=== PATIENT | female | born 1965 | race Caucasian/White ===

== ENCOUNTER 2018-06-14 07:10 | Emergency (ER) ==
[2018-06-14 07:22] VITALS: BP 184/126; TEMP 98; BMI 51.7
[2018-06-14] MEDS ORDERED: ZOFRAN 4 MG/2 ML IVP STA ×2 (07:43→10:28)
[2018-06-14] MEDS ORDERED: TORADOL IVP STA (07:43)
--- NOTE | 2018-06-14 07:51 | ED.PDOC ---
General ED Provider: Dr. ASUNCION CASAS Chief Complaint: Headache Stated Complaint: Severe Headache with nausea and vomiting. Onset yesterday while working. Has been some time since expericencing this type of headache. Has been experiencing multipe episodes of emesis. Time Seen by Physician: 07:15 Mode of Arrival: Walk-In Information Source: Patient Exam Limitations: No limitations Primary Care Provider: ASUNCION HERRERA Nursing and Triage Documentation Reviewed and Agree: Yes Does patient meet sepsis criteria?: No System Inflammatory Response Syndrome: Not Applicable Sepsis Protocol: For patient's 13 years and over: Temp is 96.8 and below OR 101 and greater Pulse >90 BPM Resp >20/minute Acutely Altered Mental Status Are patient's symptoms suggestive of a new infection, such as: -Pneumonia -Skin, Soft Tissue -Endocarditis -UTI -Bone, Joint Infection -Implantable Device -Acute Abdominal Infection -Wound Infection -Meningitis -Blood Stream Catheter Infection -Unknown Neurological Complaint Exam - Headache Complaint/Exam Onset: Sudden Duration: 20 HR Symptoms Are: Still present Timing: Constant Episodes Lasting: Hours Worst Headache Ever: No Initial Severity: Moderate Current Severity: Severe Location: Diffuse, Occipital Character: Reports: Dull, Throbbing, Pressure Alleviating: Reports: None Associated Signs and Symptoms: Reports: Dizziness, Nausea, Vomiting, Neck stiffness Related History: Reports: Similar episode Related Surgical History: Reports: None SAH Risk Factors: Reports: None Meningitis Risk Factors: Reports: None SDH Risk Factors: Reports: None Temporal Arteritis Risk Factors: Reports: Female, Normal Head CT Within Last 12 Months: No Temporal Artery Tenderness: Present: None Sinus Tenderness: Present: None TMJ Tenderness: Present: None Meningeal Signs Positive: No Pain on Passive Flexion-Positive Kernig's: No ROM Limited In: No Limitiations Focal Weakness: Present: None Focal Sensory Loss: Present: None Gait: Normal Nystagmus Present: No Gag Reflex Present: Yes [id number]: Normal Findings Differential Diagnoses: Migraine, Tension Headache, Other Review of Systems - Review Of Systems Constitutional: Reports: No symptoms Eyes: Reports: No symptoms Ears, Nose, Mouth, Throat: Reports: No symptoms Respiratory: Reports: No symptoms Cardiac: Reports: No symptoms GI: Reports: No symptoms : Reports: No symptoms Musculoskeletal: Reports: No symptoms Skin: Reports: No symptoms Neurological: Reports: No symptoms, Headache Endocrine: Reports: No symptoms Hematologic/Lymphatic: Reports: No symptoms All Other Systems: Reviewed and Negative Past Medical History - Past Medical History Previously Healthy: Yes Endocrine: Reports: DM 2 Cardiovascular: Reports: CAD, SD (2015), Hypertension Respiratory: Reports: None Hematological: Reports: Anemia Gastrointestinal: Reports: None Genitourinary: Reports: None Neuro/Psych: Reports: Migraine Musculoskeletal: Reports: None Cancer: Reports: Breast Last Menstrual Period: unknown - Surgical History General Surgical History: Reports: Other (Bilateral Mastectomies) - Family History Family History: Reports: Heart, Hypertension, Diabetes - Social History Smoking Status: Current every day smoker, Light tobacco smoker Hx Substance Use: No Alcohol Screening: None Physical Exam - Physical Exam Appearance: Ill-appearing, Obese Ill-appearing: Moderate Pain Distress: Moderate Eyes: YUL[place], EOMI, Conjunctiva clear ENT: Ears normal, Nose normal, Oropharynx normal Neck: Supple Respiratory: Airway patent, Breath sounds clear, Breath sounds equal, Respirations nonlabored Cardiovascular: RRR, Pulses normal, No rub, No murmur GI/: Soft, Nontender, No masses, Bowel sounds normal, No Organomegaly Musculoskeletal: Normal strength, ROM intact, No edema, No calf tenderness Skin: Warm, Dry, Normal color Neurological: Sensation intact, Motor intact, Reflexes intact, Cranial nerves intact, Alert, Oriented Psychiatric: Affect appropriate, Mood appropriate Critical Care Note - Critical Care Note Total Time (mins): 120 Course - Course Hematology/Chemistry: 06/14/18 07:55 06/14/18 07:55 Orders, Labs, Meds: Lab Review 06/14/18 06/14/18 06/14/18 07:55 07:55 08:20 WBC 8.70 RBC 5.67 H Hgb 17.4 H Hct 54.0 H MCV 95.2 MCH 30.7 MCHC 32.2 RDW Coeff of Connie 14.8 Plt Count 199 Neutrophils % (Manual) 92.0 H Lymphocytes % (Manual) 4.0 L Monocytes % (Manual) 3.0 Eosinophils % (Manual) 1.0 Anisocytosis Not present Sodium 138.6 Potassium 4.58 Chloride 97.8 L Carbon Dioxide 27.8 Anion Gap 17.58 BUN 17.8 H Creatinine 0.89 Estimated GFR (MDRD) 66.00 BUN/Creatinine Ratio 20.00 Glucose 389.5 H Calcium 9.77 Total Bilirubin 0.71 AST 24.1 ALT 29.1 Alkaline Phosphatase 123.8 Total Creatine Kinase 61.2 Troponin I < 0.012 Total Protein 7.45 Albumin 4.24 Globulin 3.21 Albumin/Globulin Ratio 1.32 Amylase Lipase Urine Color Urine Clarity Urine pH Ur Specific [place] Urine Protein Urine Glucose (UA) Urine Ketones Urine Blood Urine Nitrite Urine Bilirubin Urine Urobilinogen Ur Leukocyte Esterase Urine Microscopic RBC Ur Squamous Epith Cells Influ A Molecular Assay Influ B Molecular Assay 06/14/18 06/14/18 06/14/18 08:30 09:27 13:12 WBC RBC Hgb Hct MCV MCH MCHC RDW Coeff of Connie Plt Count Neutrophils % (Manual) Lymphocytes % (Manual) Monocytes % (Manual) Eosinophils % (Manual) Anisocytosis Sodium Potassium Chloride Carbon Dioxide Anion Gap BUN Creatinine Estimated GFR (MDRD) BUN/Creatinine Ratio Glucose Calcium Total Bilirubin AST ALT Alkaline Phosphatase Total Creatine Kinase Troponin I Total Protein Albumin Globulin Albumin/Globulin Ratio Amylase 53.4 Lipase 90.9 Urine Color Yellow Urine Clarity Clear Urine pH 5.5 Ur Specific [place] 1.020 Urine Protein Negative Urine Glucose (UA) Negative Urine Ketones Negative Urine Blood Trace-intact Urine Nitrite Negative Urine Bilirubin Negative Urine Urobilinogen 0.2 Ur Leukocyte Esterase Negative Urine Microscopic RBC 0-2 Ur Squamous Epith Cells Not present Influ A Molecular Assay Negative by naat Influ B Molecular Assay Negative by naat Orders Category Date Time Status EKG-(ED ONLY) Stat CARDIO 06/14/18 08:57 Completed VITAL SIGNS Q30MIN CARE 06/14/18 08:05 Active ACCUCHECK (ED) [ED ACCUCHECK ASSESSMENT] .ONCE EMERGENCY 06/14/18 09:50 Active ACCUCHECK (ED) [ED ACCUCHECK ASSESSMENT] .ONCE EMERGENCY 06/14/18 12:49 Active ED IV/MEDIPORT/POWERPORT .ONCE EMERGENCY 06/14/18 07:43 Active AMYLASE Stat LAB 06/14/18 08:30 Completed CBC W/ AUTO DIFF Stat LAB 06/14/18 07:55 Completed COMPREHENSIVE METABOLIC PANEL Stat LAB 06/14/18 07:55 Completed CPK [CREATINE KINASE] Stat LAB 06/14/18 08:20 Completed FLU A & B MOLECULAR [FLU A/B MOLECULAR] Stat LAB 06/14/18 09:27 Completed LIPASE Stat LAB 06/14/18 08:30 Completed MANUAL DIFFERENTIAL Stat LAB 06/14/18 07:55 Completed TROPONIN I Stat LAB 06/14/18 08:20 Completed UA [URINALYSIS C & S IF INDICATED] Stat LAB 06/14/18 13:12 Completed 0.9 % Sodium Chloride [Saline Flush] MEDS 06/14/18 07:43 Active 1 syr IVF PRN PRN Famotidine Inj [Pepcid] MEDS 06/14/18 08:56 Discontinued 20 mg IVP ONCE STA Insulin Regular, Human [Humulin R] MEDS 06/14/18 10:30 Discontinued 10 unit SUBCUT ONCE STA Ketorolac Tromethamine [Toradol] MEDS 06/14/18 07:43 Discontinued 30 mg IVP ONCE STA Losartan Potassium [Cozaar] MEDS 06/14/18 09:08 Discontinued 100 mg PO ONCE STA Metoprolol Tartrate [Lopressor] MEDS 06/14/18 09:09 Discontinued 50 mg PO ONCE STA Nalbuphine HCl [Nubain] MEDS 06/14/18 07:59 Discontinued 10 mg IVP ONCE STA Nalbuphine HCl [Nubain] MEDS 06/14/18 10:32 Discontinued 10 mg IVP ONCE STA Ondansetron HCl/Pf [Zofran 4 mg/2 ml] MEDS 06/14/18 07:43 Discontinued 4 mg IVP ONCE STA Ondansetron HCl/Pf [Zofran 4 mg/2 ml] MEDS 06/14/18 10:28 Discontinued 4 mg IVP ONCE STA Sodium Chloride 0.9% [Sodium Chloride] 1,000 ml MEDS 06/14/18 07:43 Discontinued IV BOLUS Sodium Chloride 0.9% [Sodium Chloride] 1,000 ml MEDS 06/14/18 10:[address] HEAD W/O CONTRAST Stat RADS 06/14/18 08:58 Completed Medications Generic Name Dose Route Start Last Admin Trade Name Freq PRN Reason Stop Dose Admin Sodium Chloride 1 syr 06/14/18 07:43 Saline Flush IVF PRN PRN To flush IV Discontinued Medications Generic Name Dose Route Start Last Admin Trade Name Freq PRN Reason Stop Dose Admin Famotidine 20 mg 06/14/18 08:56 06/14/18 09:30 Pepcid IVP 06/14/18 08:57 20 mg ONCE STA Administration Sodium Chloride 1,000 mls @ 500 mls/hr 06/14/18 07:43 06/14/18 10:48 Sodium Chloride IV 06/14/18 09:42 500 mls/hr BOLUS STA Administration Sodium Chloride 1,000 mls @ 1,000 mls/hr 06/14/18 10:40 06/14/18 13:31 Sodium Chloride IV 06/14/18 11:39 Not Given BOLUS STA Insulin Human Regular 10 unit 06/14/18 10:30 06/14/18 10:52 Humulin R SUBCUT 06/14/18 10:31 10 unit ONCE STA Administration Ketorolac Tromethamine 30 mg 06/14/18 07:43 06/14/18 08:36 Toradol IVP 06/14/18 07:44 Not Given ONCE STA Losartan Potassium 100 mg 06/14/18 09:08 06/14/18 11:16 Cozaar PO 06/14/18 09:09 100 mg ONCE STA Administration Metoprolol Tartrate 50 mg 06/14/18 09:09 06/14/18 11:17 Lopressor PO 06/14/18 09:10 50 mg ONCE STA Administration Nalbuphine HCl 10 mg 06/14/18 07:59 06/14/18 08:28 Nubain IVP 06/14/18 08:00 10 mg ONCE STA Administration Nalbuphine HCl 10 mg 06/14/18 10:32 06/14/18 10:56 Nubain IVP 06/14/18 10:33 10 mg ONCE STA Administration Ondansetron HCl 4 mg 06/14/18 07:43 06/14/18 08:26 Zofran 4 Mg/2 Ml IVP 06/14/18 07:44 4 mg ONCE STA Administration Ondansetron HCl 4 mg 06/14/18 10:28 06/14/18 10:48 Zofran 4 Mg/2 Ml IVP 06/14/18 10:29 4 mg ONCE STA Administration Vital Signs: Temp Pulse Resp BP Pulse Ox 06/14/18 07:10 98.0 F 104 H 20 184/126 H 93 L Departure - Departure Time of Disposition: 13:00 Disposition: HOME SELF-CARE Discharge Problem: Cephalgia, Gastritis, Vomiting, Hypertension, Insulin dependent diabetes mellitus Instructions: Acute Nausea and Vomiting (ED), Hypertension (ED), General Headache (ED), Diabetes and Exercise (ED) Condition: Fair Pt referred to PMD for follow-up: Yes (1 wk) IPMP verified?: No Additional Instructions: Monitor Blood glucose and use sliding scale Insulin Clear liquids and advance diet per tolerance May take home analgesics for pain and zofran for nausea -=vomiting Take meds for headache and nausea as needed Prescriptions: Ondansetron [Zofran Odt] 4 mg PO Q8H PRN #7 tab.rapdis PRN Reason: Nausea vomiting Ondansetron [Zofran Odt] 4 mg PO Q8H #7 tab.rapdis Allergies/Adverse Reactions: Allergies cefaclor [From Ceclor] Adverse Reaction (Verified 06/14/18 07:20) ibuprofen [From Motrin] Adverse Reaction (Verified 06/14/18 07:20) levofloxacin [From Levaquin] Adverse Reaction (Verified 06/14/18 07:20) Penicillins Adverse Reaction (Verified 06/14/18 07:20) steroid Adverse Reaction (Uncoded 10/05/14 13:31) Home Medications: Ambulatory Orders Levothyroxine Sodium [Synthroid] 100 mcg PO QDAC 06/28/15 Metformin HCl [Glucophage] 500 mg PO BIDWM 06/28/15 Metoprolol Succinate 50 mg PO BID 06/28/15 Hydrochlorothiazide 25 mg PO DAILY 06/14/18 Hydrocodone Bit/Acetaminophen [[place] 5-325] 1 each PO Q6HR PRN 06/14/18 Losartan Potassium [Cozaar] 100 mg PO DAILY 06/14/18 Nitroglycerin [Nitrostat] 0.4 mg SL Q5MIN X 3 DOSES PRN 06/14/18 Ondansetron [Zofran Odt] 4 mg PO Q8H #7 tab.rapdis 06/14/18 Ondansetron [Zofran Odt] 4 mg PO Q8H PRN #7 tab.rapdis 06/14/18 Pregabalin [Lyrica] 150 mg PO TID 06/14/18 Disposition Discussed With: Patient GI Complaint Exam - Vomiting/Diarrhea Complaint/Exam Onset/Duration: 20 hrs Symptoms Are: Still present (But improving with treatment.) Episodes of Vomiting over last 24 Hours: 8 Initial Severity: Moderate Current Severity: Moderate Character of Vomiting: Reports: Bilious, Retching Character of Diarrhea: Reports: Watery Aggravating: Reports: Liquids, Position Alleviating: Reports: None Associated Signs and Symptoms: Reports: Dizziness, Light-headedness, Cramping Last Oral Intake: Yesterday AM Surgical Obstruction Risk Factors: Reports: None Abdominal Findings: Present: None Kussmaul Respirations Present: No Differential Diagnoses: Dehydration, Gastritis, Viral Gastroenteritis, Pancreatitis
[2018-06-14] MEDS ORDERED: NUBAIN IVP STA ×2 (07:59→10:32)
[2018-06-14] MEDS: SODIUM CHLORIDE 1,000 ML IV STA ×2 (08:25→10:48)
[2018-06-14] MEDS ORDERED: PEPCID IVP STA (08:56)
[2018-06-14] MEDS ORDERED: COZAAR PO STA (09:08)
[2018-06-14] MEDS ORDERED: LOPRESSOR PO STA (09:09)
--- NOTE | 2018-06-14 10:04 | CT ---
EXAM: CT BRAIN HISTORY: Acute onset headache TECHNIQUE: CT brain without intravenous contrast. 5-mm axial sections with Reformations. COMPARISON: None FINDINGS: Brain is unremarkable without evidence of hemorrhage or large vessel distribution recent ischemic in farction. There is no suggestion of acute hydrocephalus or subdural fluid collection. No mass or ma ss effect. Cranium has no acute finding. Mastoid processes are aerated. The visualized paranasal sinuses are clear. IMPRESSION: No acute intracranial process.
[2018-06-14] MEDS ORDERED: HUMULIN R SUBCUT STA (10:30)
[2018-06-14] MEDS ORDERED: SODIUM CHLORIDE 1,000 ML IV STA (10:40)
== END 2018-06-14 14:08 | disposition home or self-care (01) ==
LOC: ED 07:10
DX: R11.2 Nausea with vomiting, unspecified (principal); R42 Dizziness and giddiness; M43.6 Torticollis; F17.210 Nicotine dependence, cigarettes, uncomplicated; E11.9 Type 2 diabetes mellitus without complications; R51 Headache; K29.70 Gastritis, unspecified, without bleeding; I10 Essential (primary) hypertension; Z79.4 Long term (current) use of insulin
CPT/HCPCS: 36415; 80053; 81001; 82150; 82550; 82962; 83690; 84484; 85007; 85025; 87502; 93005; 93010; 96360; 96361; 96372; 96375; 96376; 99284

== ENCOUNTER 2022-07-14 02:41 | Observation (INO) ==
[2022-07-14 02:53] VITALS: BMI 51.2
[2022-07-14] MEDS ORDERED: SODIUM CHLORIDE 1,000 ML IV STA (03:05)
[2022-07-14] MEDS ORDERED: ZOFRAN 4 MG/2 ML IVP STA (03:05)
[2022-07-14 03:22] LABS: BASOPHILS # (AUTO) 0.1 K/uL (0-0.2); BASOPHILS % (AUTO) 0.4 % (0.0-3.0); EOSINOPHILS % (AUTO) 0.4 % (0.0-7.0); HEMATOCRIT 49.1 % (37.0-47.0); HEMOGLOBIN 15.4 g/dl (12.0-16.0); IMMATURE GRANULOCYTE # (AUTO) 0.1 (0.0-1.0); IMMATURE GRANULOCYTE % (AUTO) 0.7 % (0.0-5.0); LYMPHOCYTES # (AUTO) 1.1 K/uL (0.60-3.4); MEAN CORPUSCULAR HEMOGLOBIN 29.2 pg (27.0-31.0); MEAN CORPUSCULAR HGB CONC 31.4 (31.8-35.4); MONOCYTES # (AUTO) 0.3 K/uL (0.4-2.0); MONOCYTES % (AUTO) 2.7 (0-10); NEUTROPHILS # (AUTO) 9.7 K/ul (2.0-6.9); NEUTROPHILS % (AUTO) 85.8 % (42.2-75.2); PLATELET COUNT 249 10^3/uL (140-440); RDW COEFFICIENT OF VARIATION 13.9 % (11.6-14.8); RED BLOOD COUNT 5.28 10^6/ul (4.20-5.40); WHITE BLOOD COUNT 11.28 K/ul (4.6-10.2)
[2022-07-14 03:34] LABS: ALANINE AMINOTRANSFERASE 20.8 U/L (0-35); ALBUMIN 4.98 g/dL (3.5-5.0); ALKALINE PHOSPHATASE 172.8 U/L (38-126); AMYLASE 61.7 U/L (30-110); ASPARTATE AMINO TRANSFERASE 27.3 U/L (14-36); BILIRUBIN,TOTAL 0.47 mg/dL (0.2-1.3); BLOOD UREA NITROGEN 24.5 mg/dL (7-17); CALCIUM 10.11 mg/dL (8.4-10.2); CARBON DIOXIDE 29.4 mmol/L (22-30.0); CHLORIDE 98.5 mmol/L (98-107); CREATININE 0.95 mg/dL (0.60-1.30); GLUCOSE 300.9 mg/dL (74-106); LIPASE 143.5 U/L (23-300); POTASSIUM 4.42 mmol/L (3.5-5.1); SODIUM 136.8 mmol/L (134.5-145); TOTAL PROTEIN 8.9 g/dL (6.3-8.2)
[2022-07-14] MEDS ORDERED: COMPAZINE IVP ONE (03:49)
[2022-07-14] MEDS ORDERED: VASOTEC IV IVP ONE (03:52)
--- NOTE | 2022-07-14 03:52 | ED.PDOC ---
General <CARLENE LADD MD - Last Filed: 07/14/22 19:04> ED Provider: Dr. CARLENE LADD Chief Complaint: Nausea/Vomiting Stated Complaint: Started having vomiting episodes tonight at 1030 pm. Has vomited twice. States she vomited her medicationss Time Seen by Provider: 07/14/22 03:05 Mode of Arrival: Walk-In Information Source: Patient and Family Primary Care Provider: ASUNCION HERRERA Nursing and Triage Documentation Reviewed and Agree: Yes Does patient meet sepsis criteria?: No System Inflammatory Response Syndrome: Not Applicable Sepsis Protocol: For patient's 13 years and over: Temp is 96.8 and below OR 101 and greater Pulse >90 BPM Resp >20/minute Acutely Altered Mental Status Are patient's symptoms suggestive of a new infection, such as: -Pneumonia -Skin, Soft Tissue -Endocarditis -UTI -Bone, Joint Infection -Implantable Device -Acute Abdominal Infection -Wound Infection -Meningitis -Blood Stream Catheter Infection -Unknown Review of Systems <CARLENE LADD MD - Last Filed: 07/14/22 19:04> Review Of Systems Constitutional: Reports Loss of appetite GI: Reports Nausea and Vomiting Neurological: Reports Headache All Other Systems: Reviewed and Negative PFSH <CARLENE LADD MD - Last Filed: 07/14/22 19:04> Medical History (Updated 07/14/22 @ 19:04 by CARLENE LADD MD) Cancer of breast Elevated lipids GERD (gastroesophageal reflux disease) Myocardial infarct Family History (Updated 07/14/22 @ 11:28 by MARIO GONSALEZ, TALYA) BROTHER Diabetes FATHER Diabetes Mother Hypertension Surgical History H/O bilateral mastectomy Hip joint replacement status History of heart artery stent Female Reproductive History Menstrual Hx Hysterectomy: No Hx Tubal Ligation: Yes Physical Exam <CARLENE LADD MD - Last Filed: 07/14/22 19:04> Physical Exam Appearance: Reports Obese Ill-appearing: Moderate Pain Distress: Mild Eyes: Reports YULIANA, EOMI and Conjunctiva clear ENT: Reports Nose normal and Oropharynx normal Neck: Not Examined Respiratory: Reports Airway patent and Breath sounds clear Cardiovascular: Reports RRR, Pulses normal, No rub and No murmur GI/: Reports Soft and Nontender Musculoskeletal: Reports Normal strength Skin: Reports Warm and Dry Neurological: Reports Motor intact, Alert and Oriented Psychiatric: Reports Anxious Interpretation <CARLENE LADD MD - Last Filed: 07/14/22 19:04> Radiology Interpretation Radiology Results: Negative Community Relations Representative Rate: Tachy Rhythm: Sinus Ectopy: None EKG Interpretation Time of EKG #1: 03:54 Rate: Tachy Rhythm: Sinus Ectopy: None [place]: NL ST Segment: Normal Interpretation: Sinus Tachycardia <ORIANA ROSS MD - Last Filed: 07/14/22 10:07> Radiology Interpretation Radiology Interpretation By: Radiologist Exam Interpreted: CT Scan Xray Comments: no brain bleed Physician Notification <CARLENE LADD MD - Last Filed: 07/14/22 19:04> Case Discussed Endorsed To/Discussed With: CODY Time of Discussion: 07:45 Critical Care Note <CARLENE LADD MD - Last Filed: 07/14/22 19:04> Critical Care Note Total Critical Care Time (mins): 45 Comments: Uncontrolled Blood pressure needed started on Nicardipine. intractable Nausea and vomiting needing IV fluids and Multiple IV pushes of antiemetics. Course <CARLENE LADD MD - Last Filed: 07/14/22 19:04> Course Hematology/Chemistry: 07/14/22 03:15 07/14/22 03:15 Orders, Labs, Meds: Lab Review 07/14/22 07/14/22 07/14/22 03:15 03:15 03:50 WBC 11.28 H RBC 5.28 Hgb 15.4 Hct 49.1 H MCV 93.0 MCH 29.2 MCHC 31.4 L RDW Coeff of Connie 13.9 Plt Count 249 Immature Gran % (Auto) 0.7 Neut % (Auto) 85.8 H Lymph % (Auto) 10.0 [place] % (Auto) 2.7 Eos % (Auto) 0.4 Baso % (Auto) 0.4 Neut # (Auto) 9.7 H Lymph # (Auto) 1.1 [place] # (Auto) 0.3 L Eos # (Auto) 0.0 Baso # (Auto) 0.1 Immature Gran # (Auto) 0.1 Sodium 136.8 Potassium 4.42 Chloride 98.5 Carbon Dioxide 29.4 Anion Gap 13.32 BUN 24.5 H Creatinine 0.95 Estimated GFR (MDRD) 60.00 BUN/Creatinine Ratio 25.78 Glucose 300.9 H Calcium 10.11 Total Bilirubin 0.47 AST 27.3 ALT 20.8 Alkaline Phosphatase 172.8 H Troponin I Total Protein 8.90 H Albumin 4.98 Globulin 3.92 Albumin/Globulin Ratio 1.27 Amylase 61.7 Lipase 143.5 Urine Color Yellow Urine Clarity Slightly Urine pH 7.0 Ur Specific [place] 1.020 Urine Protein 3+ H Urine Glucose (UA) 2+ H Urine Ketones 1+ H Urine Blood 1+ H Urine Nitrite Negative Urine Bilirubin Negative Urine Urobilinogen 0.2 Ur Leukocyte Esterase Negative Urine Microscopic RBC 2-5 Urine Microscopic WBC 0-2 Ur Squamous Epith Cells 0-2 Urine Bacteria 4+ SARS CoV-2 RNA Rapid VICKI 07/14/22 07/14/22 07:50 08:02 WBC RBC Hgb Hct MCV MCH MCHC RDW Coeff of Connie Plt Count Immature Gran % (Auto) Neut % (Auto) Lymph % (Auto) [place] % (Auto) Eos % (Auto) Baso % (Auto) Neut # (Auto) Lymph # (Auto) [place] # (Auto) Eos # (Auto) Baso # (Auto) Immature Gran # (Auto) Sodium Potassium Chloride Carbon Dioxide Anion Gap BUN Creatinine Estimated GFR (MDRD) BUN/Creatinine Ratio Glucose Calcium Total Bilirubin AST ALT Alkaline Phosphatase Troponin I 0.027 Total Protein Albumin Globulin Albumin/Globulin Ratio Amylase Lipase Urine Color Urine Clarity Urine pH Ur Specific [place] Urine Protein Urine Glucose (UA) Urine Ketones Urine Blood Urine Nitrite Urine Bilirubin Urine Urobilinogen Ur Leukocyte Esterase Urine Microscopic RBC Urine Microscopic WBC Ur Squamous Epith Cells Urine Bacteria SARS CoV-2 RNA Rapid VICKI Negative Orders Category Date Time Status EKG-(ED ONLY) Stat CARDIO 07/14/22 03:48 Completed EKG-(IP & OP ONLY) Routine CARDIO 07/15/22 06:00 Ordered ACTIVITY .Complete BR CARE 07/14/22 10:07 Active BLOOD GLUCOSE MONITORING (MED/SURG) ACCUCHECK Q6H CARE 07/14/22 10:07 Active GIVE HS SNACK 2100 CARE 07/14/22 10:08 Active INTAKE & OUTPUT Q8HR CARE 07/14/22 10:07 Active IP: INSERT SALINE LOCK ONCE CARE 07/14/22 10:07 Active TELEMETRY MONITORING TELE CARE 07/14/22 10:07 Active VITAL SIGNS Q4HR CARE 07/14/22 10:08 Active VTE PREVENTION .PAWEL On AM/Off PM CARE 07/14/22 10:07 Active ADA 1800 THERESA. DIET DIETARY 07/14/22 Lunch Ordered HS SNACK DIETARY 07/14/22 Dinner Ordered ED IV/MEDIPORT/POWERPORT .ONCE EMERGENCY 07/14/22 03:05 Active AMYLASE Stat LAB 07/14/22 03:15 Completed CBC W/ AUTO DIFF DAILY@0600 LAB 07/15/22 06:00 Ordered CBC W/ AUTO DIFF DAILY@0600 LAB 07/16/22 06:00 Ordered CBC W/ AUTO DIFF Stat LAB 07/14/22 03:15 Completed COMPREHENSIVE METABOLIC PANEL DAILY@0600 LAB 07/15/22 06:00 Ordered COMPREHENSIVE METABOLIC PANEL DAILY@0600 LAB 07/16/22 06:00 Ordered COMPREHENSIVE METABOLIC PANEL Stat LAB 07/14/22 03:15 Completed LIPASE Stat LAB 07/14/22 03:15 Completed SARS COV-2 RNA RAPID VICKI Stat LAB 07/14/22 07:50 Completed TROPONIN I Q8H LAB 07/14/22 16:25 Completed TROPONIN I Q8H LAB 07/15/22 00:15 Ordered TROPONIN I Stat LAB 07/14/22 08:02 Completed URINALYSIS C & S IF INDICATED Stat LAB 07/14/22 03:50 Completed URINE CULTURE Stat LAB 07/14/22 03:50 Received 0.9 % Sodium Chloride [Saline Flush] MEDS 07/14/22 03:05 Active 1 syr IVF PRN PRN Acetaminophen [Tylenol] MEDS 07/14/22 09:01 Discontinued 650 mg PO ONCE ONE Acetaminophen [Tylenol] MEDS 07/14/22 10:07 Active 650 mg PO Q4H PRN Amitriptyline HCl [Elavil] MEDS 07/14/22 21:00 Active 50 mg PO BEDTIME Diphenhydramine HCl [Benadryl] MEDS 07/14/22 15:00 Active 50 mg PO TID Enalaprilat Dihydrate [Vasotec IV] MEDS 07/14/22 03:52 Discontinued 1.25 mg IVP ONCE ONE Gabapentin [Neurontin] MEDS 07/14/22 15:00 Active 600 mg PO TID Haloperidol Lactate [Haldol] MEDS 07/14/22 05:10 Discontinued 1 mg IVP ONCE ONE Insulin Regular, Human [Humulin R] MEDS 07/14/22 10:14 Active See Protocol SUBCUT PRN PRN Labetalol HCl [Trandate] MEDS 07/14/22 04:10 Discontinued 20 mg IVP ONCE ONE Metoclopramide HCl [Reglan] MEDS 07/14/22 07:04 Discontinued 10 mg IVP ONCE STA Nalbuphine HCl [Nubain] MEDS 07/14/22 04:16 Discontinued 10 mg IVP ONCE ONE Nicardipine in NaCl, Iso-Osm [Cardene 20 mg/200 ml NaCl MEDS 07/14/22 06:39 Discontinued ] 20 mg in 200 ml IV TITRATION Nicardipine in NaCl, Iso-Osm [Cardene 20 mg/200 ml NaCl MEDS 07/14/22 10:00 Active ] 20 mg in 200 ml IV TITRATION Ondansetron HCl/Pf [Zofran 4 mg/2 ml] MEDS 07/14/22 03:05 Discontinued 4 mg IVP ONCE STA Ondansetron HCl/Pf [Zofran 4 mg/2 ml] MEDS 07/14/22 15:00 Active 4 mg IVP TID Pravastatin Sodium [Pravachol] MEDS 07/15/22 09:00 Active 40 mg PO DAILY Prochlorperazine Edisylate [Compazine] MEDS 07/14/22 03:49 Discontinued 10 mg IVP ONCE ONE Sodium Chloride 0.9% [Sodium Chloride] 1,000 ml MEDS 07/14/22 10:30 Active IV 75 mls/hr Sodium Chloride 0.9% [Sodium Chloride] 1,000 ml MEDS 07/14/22 03:05 Discontinued IV BOLUS Sodium Chloride 0.9% [Sodium Chloride] 500 ml MEDS 07/14/22 06:44 Active IV 30 mls/hr RESUSCITATION STATUS Routine OTHERS 07/14/22 10:[address] HEAD W/O CONTRAST Stat RADS 07/14/22 04:23 Completed Medications Generic Name Dose Route Start Last Admin Trade Name Freq PRN Reason Stop Dose Admin Acetaminophen 650 mg 07/14/22 10:07 07/14/22 11:59 Acetaminophen 325 Mg Tablet PO 650 mg Q4H PRN Administration Mild Pain Amitriptyline HCl 50 mg 07/14/22 21:00 Amitriptyline Hcl 25 Mg Tablet PO BEDTIME DREW Diphenhydramine HCl 50 mg 07/14/22 15:00 07/14/22 14:48 Diphenhydramine Hcl 25 Mg Capsule PO 50 mg TID DREW Administration Docusate Sodium 100 mg 07/14/22 21:00 Docusate Sodium 100 Mg Capsule PO BID DREW Gabapentin 600 mg 07/14/22 15:00 07/14/22 14:48 Gabapentin 300 Mg Capsule PO 600 mg TID DREW Administration Sodium Chloride 500 mls @ 30 mls/hr 07/14/22 06:44 07/14/22 06:47 Sodium Chloride IV 07/14/22 23:23 30 mls/hr .[id number] STA Administration Nicardipine/Sodium Chloride 20 mg in 200 mls @ 50 mls/hr 07/14/22 10:00 07/14/22 15:17 Cardene 20 Mg/200 Ml Nacl IV 0 mg/hr TITRATION DREW 0 mls/hr Titration Protocol 5 MG/HR Sodium Chloride 1,000 mls @ 75 mls/hr 07/14/22 10:30 07/14/22 16:23 Sodium Chloride IV Not Given .[id number] DREW Insulin Human Regular 0 unit 07/14/22 10:14 07/14/22 17:20 Insulin Regular, Human 100 Unit/Ml (3ml) Vial SUBCUT 4 unit PRN PRN Administration Hyperglycemia Protocol Morphine Sulfate 2 mg 07/14/22 15:23 07/14/22 15:28 Morphine Sulfate 2 Mg/Ml Syringe IVP 2 mg Q4H PRN Administration pain Ondansetron HCl 4 mg 07/14/22 15:00 07/14/22 14:48 Ondansetron Hcl/Pf 4 Mg/2 Ml Sdv IVP 4 mg TID DREW Administration Pravastatin Sodium 40 mg 07/15/22 09:00 Pravastatin Sodium 20 Mg Tablet PO DAILY DREW Sodium Chloride 1 syr 07/14/22 03:05 07/14/22 03:33 0.9% Sodium Chloride 10 Ml Disp.Syrin IVF 1 syr PRN PRN Administration To flush IV Tizanidine HCl 8 mg 07/14/22 21:00 Tizanidine Hcl 4 Mg Tablet PO BEDTIME DREW Discontinued Medications Generic Name Dose Route Start Last Admin Trade Name Freq PRN Reason Stop Dose Admin Acetaminophen 650 mg 07/14/22 09:01 07/14/22 09:16 Acetaminophen 325 Mg Tablet PO 07/14/22 09:02 650 mg ONCE ONE Administration Enalaprilat 1.25 mg 07/14/22 03:52 07/14/22 04:01 Enalaprilat Dihydrate 1.25 Mg/Ml Vial IVP 07/14/22 03:53 1.25 mg ONCE ONE Administration Haloperidol Lactate 1 mg 07/14/22 05:10 07/14/22 05:23 Haloperidol Lactate 5 Mg/Ml Vial IVP 07/14/22 05:11 1 mg ONCE ONE Administration Sodium Chloride 1,000 mls @ 1,000 mls/hr 07/14/22 03:05 07/14/22 03:32 Sodium Chloride IV 07/14/22 04:04 1,000 mls/hr BOLUS STA Administration Nicardipine/Sodium Chloride 20 mg in 200 mls @ 50 mls/hr 07/14/22 06:39 07/14/22 09:21 Cardene 20 Mg/200 Ml Nacl IV 07/14/22 10:38 0 mg/hr TITRATION STA 0 mls/hr Titration Protocol 5 MG/HR Labetalol HCl 20 mg 07/14/22 04:10 07/14/22 04:24 Labetalol Hcl 20 Mg/4 Ml Disp.Syrin IVP 07/14/22 04:11 20 mg ONCE ONE Administration Metoclopramide HCl 10 mg 07/14/22 07:04 07/14/22 07:11 Metoclopramide Hcl 10 Mg/2 Ml IVP 07/14/22 07:05 10 mg ONCE STA Administration Nalbuphine HCl 10 mg 07/14/22 04:16 07/14/22 04:27 Nalbuphine Hcl 10 Mg/Ml Ampul IVP 07/14/22 04:17 10 mg ONCE ONE Administration Ondansetron HCl 4 mg 07/14/22 03:05 07/14/22 03:27 Ondansetron Hcl/Pf 4 Mg/2 Ml Sdv IVP 07/14/22 03:06 4 mg ONCE STA Administration Prochlorperazine Edisylate 10 mg 07/14/22 03:49 07/14/22 03:57 Prochlorperazine Edisylate 10 Mg/2 Ml Sdv IVP 07/14/22 03:50 10 mg ONCE ONE Administration Vital Signs: Temp Pulse Resp BP Pulse Ox 07/14/22 05:49 101 H 22 H 172/98 H 95 07/14/22 02:42 97.8 F 102 H 20 223/125 H 99 <ORIANA ROSS MD - Last Filed: 07/14/22 10:07> Course Orders, Labs, Meds: Lab Review 07/14/22 07/14/22 07/14/22 03:15 03:15 03:50 WBC 11.28 H RBC 5.28 Hgb 15.4 Hct 49.1 H MCV 93.0 MCH 29.2 MCHC 31.4 L RDW Coeff of Connie 13.9 Plt Count 249 Immature Gran % (Auto) 0.7 Neut % (Auto) 85.8 H Lymph % (Auto) 10.0 [place] % (Auto) 2.7 Eos % (Auto) 0.4 Baso % (Auto) 0.4 Neut # (Auto) 9.7 H Lymph # (Auto) 1.1 [place] # (Auto) 0.3 L Eos # (Auto) 0.0 Baso # (Auto) 0.1 Immature Gran # (Auto) 0.1 Sodium 136.8 Potassium 4.42 Chloride 98.5 Carbon Dioxide 29.4 Anion Gap 13.32 BUN 24.5 H Creatinine 0.95 Estimated GFR (MDRD) 60.00 BUN/Creatinine Ratio 25.78 Glucose 300.9 H Calcium 10.11 Total Bilirubin 0.47 AST 27.3 ALT 20.8 Alkaline Phosphatase 172.8 H Troponin I Total Protein 8.90 H Albumin 4.98 Globulin 3.92 Albumin/Globulin Ratio 1.27 Amylase 61.7 Lipase 143.5 Urine Color Yellow Urine Clarity Slightly Urine pH 7.0 Ur Specific [place] 1.020 Urine Protein 3+ H Urine Glucose (UA) 2+ H Urine Ketones 1+ H Urine Blood 1+ H Urine Nitrite Negative Urine Bilirubin Negative Urine Urobilinogen 0.2 Ur Leukocyte Esterase Negative Urine Microscopic RBC 2-5 Urine Microscopic WBC 0-2 Ur Squamous Epith Cells 0-2 Urine Bacteria 4+ SARS CoV-2 RNA Rapid VICKI 07/14/22 07/14/22 07:50 08:02 WBC RBC Hgb Hct MCV MCH MCHC RDW Coeff of Connie Plt Count Immature Gran % (Auto) Neut % (Auto) Lymph % (Auto) [place] % (Auto) Eos % (Auto) Baso % (Auto) Neut # (Auto) Lymph # (Auto) [place] # (Auto) Eos # (Auto) Baso # (Auto) Immature Gran # (Auto) Sodium Potassium Chloride Carbon Dioxide Anion Gap BUN Creatinine Estimated GFR (MDRD) BUN/Creatinine Ratio Glucose Calcium Total Bilirubin AST ALT Alkaline Phosphatase Troponin I 0.027 Total Protein Albumin Globulin Albumin/Globulin Ratio Amylase Lipase Urine Color Urine Clarity Urine pH Ur Specific [place] Urine Protein Urine Glucose (UA) Urine Ketones Urine Blood Urine Nitrite Urine Bilirubin Urine Urobilinogen Ur Leukocyte Esterase Urine Microscopic RBC Urine Microscopic WBC Ur Squamous Epith Cells Urine Bacteria SARS CoV-2 RNA Rapid VICKI Negative Orders Category Date Time Status EKG-(ED ONLY) Stat CARDIO 07/14/22 03:48 Completed EKG-(IP & OP ONLY) Routine CARDIO 07/15/22 06:00 Ordered ACTIVITY .Complete BR CARE 07/14/22 10:07 Active BLOOD GLUCOSE MONITORING (MED/SURG) ACCUCHECK Q6H CARE 07/14/22 10:07 Active GIVE HS SNACK 2100 CARE 07/14/22 10:08 Active INTAKE & OUTPUT Q8HR CARE 07/14/22 10:07 Active IP: INSERT SALINE LOCK ONCE CARE 07/14/22 10:07 Active TELEMETRY MONITORING TELE CARE 07/14/22 10:07 Active VITAL SIGNS Q4HR CARE 07/14/22 10:08 Active VTE PREVENTION .PAWEL On AM/Off PM CARE 07/14/22 10:07 Active ADA 1800 THERESA. DIET DIETARY 07/14/22 Lunch Ordered HS SNACK DIETARY 07/14/22 Dinner Ordered ED IV/MEDIPORT/POWERPORT .ONCE EMERGENCY 07/14/22 03:05 Active AMYLASE Stat LAB 07/14/22 03:15 Completed CBC W/ AUTO DIFF DAILY@0600 LAB 07/15/22 06:00 Ordered CBC W/ AUTO DIFF DAILY@0600 LAB 07/16/22 06:00 Ordered CBC W/ AUTO DIFF Stat LAB 07/14/22 03:15 Completed COMPREHENSIVE METABOLIC PANEL DAILY@0600 LAB 07/15/22 06:00 Ordered COMPREHENSIVE METABOLIC PANEL DAILY@0600 LAB 07/16/22 06:00 Ordered COMPREHENSIVE METABOLIC PANEL Stat LAB 07/14/22 03:15 Completed LIPASE Stat LAB 07/14/22 03:15 Completed SARS COV-2 RNA RAPID VICKI Stat LAB 07/14/22 07:50 Completed TROPONIN I Q8H LAB 07/14/22 16:25 Completed TROPONIN I Q8H LAB 07/15/22 00:15 Ordered TROPONIN I Stat LAB 07/14/22 08:02 Completed URINALYSIS C & S IF INDICATED Stat LAB 07/14/22 03:50 Completed URINE CULTURE Stat LAB 07/14/22 03:50 Received 0.9 % Sodium Chloride [Saline Flush] MEDS 07/14/22 03:05 Active 1 syr IVF PRN PRN Acetaminophen [Tylenol] MEDS 07/14/22 09:01 Discontinued 650 mg PO ONCE ONE Acetaminophen [Tylenol] MEDS 07/14/22 10:07 Active 650 mg PO Q4H PRN Amitriptyline HCl [Elavil] MEDS 07/14/22 21:00 Active 50 mg PO BEDTIME Diphenhydramine HCl [Benadryl] MEDS 07/14/22 15:00 Active 50 mg PO TID Enalaprilat Dihydrate [Vasotec IV] MEDS 07/14/22 03:52 Discontinued 1.25 mg IVP ONCE ONE Gabapentin [Neurontin] MEDS 07/14/22 15:00 Active 600 mg PO TID Haloperidol Lactate [Haldol] MEDS 07/14/22 05:10 Discontinued 1 mg IVP ONCE ONE Insulin Regular, Human [Humulin R] MEDS 07/14/22 10:14 Active See Protocol SUBCUT PRN PRN Labetalol HCl [Trandate] MEDS 07/14/22 04:10 Discontinued 20 mg IVP ONCE ONE Metoclopramide HCl [Reglan] MEDS 07/14/22 07:04 Discontinued 10 mg IVP ONCE STA Nalbuphine HCl [Nubain] MEDS 07/14/22 04:16 Discontinued 10 mg IVP ONCE ONE Nicardipine in NaCl, Iso-Osm [Cardene 20 mg/200 ml NaCl MEDS 07/14/22 06:39 Discontinued ] 20 mg in 200 ml IV TITRATION Nicardipine in NaCl, Iso-Osm [Cardene 20 mg/200 ml NaCl MEDS 07/14/22 10:00 Active ] 20 mg in 200 ml IV TITRATION Ondansetron HCl/Pf [Zofran 4 mg/2 ml] MEDS 07/14/22 03:05 Discontinued 4 mg IVP ONCE STA Ondansetron HCl/Pf [Zofran 4 mg/2 ml] MEDS 07/14/22 15:00 Active 4 mg IVP TID Pravastatin Sodium [Pravachol] MEDS 07/15/22 09:00 Active 40 mg PO DAILY Prochlorperazine Edisylate [Compazine] MEDS 07/14/22 03:49 Discontinued 10 mg IVP ONCE ONE Sodium Chloride 0.9% [Sodium Chloride] 1,000 ml MEDS 07/14/22 10:30 Active IV 75 mls/hr Sodium Chloride 0.9% [Sodium Chloride] 1,000 ml MEDS 07/14/22 03:05 Discontinued IV BOLUS Sodium Chloride 0.9% [Sodium Chloride] 500 ml MEDS 07/14/22 06:44 Active IV 30 mls/hr RESUSCITATION STATUS Routine OTHERS 07/14/22 10:[address] HEAD W/O CONTRAST Stat RADS 07/14/22 04:23 Completed Medications Generic Name Dose Route Start Last Admin Trade Name Freq PRN Reason Stop Dose Admin Acetaminophen 650 mg 07/14/22 10:07 07/14/22 11:59 Acetaminophen 325 Mg Tablet PO 650 mg Q4H PRN Administration Mild Pain Amitriptyline HCl 50 mg 07/14/22 21:00 Amitriptyline Hcl 25 Mg Tablet PO BEDTIME DREW Diphenhydramine HCl 50 mg 07/14/22 15:00 07/14/22 14:48 Diphenhydramine Hcl 25 Mg Capsule PO 50 mg TID DREW Administration Docusate Sodium 100 mg 07/14/22 21:00 Docusate Sodium 100 Mg Capsule PO BID DREW Gabapentin 600 mg 07/14/22 15:00 07/14/22 14:48 Gabapentin 300 Mg Capsule PO 600 mg TID DREW Administration Sodium Chloride 500 mls @ 30 mls/hr 07/14/22 06:44 07/14/22 06:47 Sodium Chloride IV 07/14/22 23:23 30 mls/hr .[id number] STA Administration Nicardipine/Sodium Chloride 20 mg in 200 mls @ 50 mls/hr 07/14/22 10:00 07/14/22 15:17 Cardene 20 Mg/200 Ml Nacl IV 0 mg/hr TITRATION DREW 0 mls/hr Titration Protocol 5 MG/HR Sodium Chloride 1,000 mls @ 75 mls/hr 07/14/22 10:30 07/14/22 16:23 Sodium Chloride IV Not Given .[id number] DREW Insulin Human Regular 0 unit 07/14/22 10:14 07/14/22 17:20 Insulin Regular, Human 100 Unit/Ml (3ml) Vial SUBCUT 4 unit PRN PRN Administration Hyperglycemia Protocol Morphine Sulfate 2 mg 07/14/22 15:23 07/14/22 15:28 Morphine Sulfate 2 Mg/Ml Syringe IVP 2 mg Q4H PRN Administration pain Ondansetron HCl 4 mg 07/14/22 15:00 07/14/22 14:48 Ondansetron Hcl/Pf 4 Mg/2 Ml Sdv IVP 4 mg TID DREW Administration Pravastatin Sodium 40 mg 07/15/22 09:00 Pravastatin Sodium 20 Mg Tablet PO DAILY DREW Sodium Chloride 1 syr 07/14/22 03:05 07/14/22 03:33 0.9% Sodium Chloride 10 Ml Disp.Syrin IVF 1 syr PRN PRN Administration To flush IV Tizanidine HCl 8 mg 07/14/22 21:00 Tizanidine Hcl 4 Mg Tablet PO BEDTIME DREW Discontinued Medications Generic Name Dose Route Start Last Admin Trade Name Freq PRN Reason Stop Dose Admin Acetaminophen 650 mg 07/14/22 09:01 07/14/22 09:16 Acetaminophen 325 Mg Tablet PO 07/14/22 09:02 650 mg ONCE ONE Administration Enalaprilat 1.25 mg 07/14/22 03:52 07/14/22 04:01 Enalaprilat Dihydrate 1.25 Mg/Ml Vial IVP 07/14/22 03:53 1.25 mg ONCE ONE Administration Haloperidol Lactate 1 mg 07/14/22 05:10 07/14/22 05:23 Haloperidol Lactate 5 Mg/Ml Vial IVP 07/14/22 05:11 1 mg ONCE ONE Administration Sodium Chloride 1,000 mls @ 1,000 mls/hr 07/14/22 03:05 07/14/22 03:32 Sodium Chloride IV 07/14/22 04:04 1,000 mls/hr BOLUS STA Administration Nicardipine/Sodium Chloride 20 mg in 200 mls @ 50 mls/hr 07/14/22 06:39 07/14/22 09:21 Cardene 20 Mg/200 Ml Nacl IV 07/14/22 10:38 0 mg/hr TITRATION STA 0 mls/hr Titration Protocol 5 MG/HR Labetalol HCl 20 mg 07/14/22 04:10 07/14/22 04:24 Labetalol Hcl 20 Mg/4 Ml Disp.Syrin IVP 07/14/22 04:11 20 mg ONCE ONE Administration Metoclopramide HCl 10 mg 07/14/22 07:04 07/14/22 07:11 Metoclopramide Hcl 10 Mg/2 Ml IVP 07/14/22 07:05 10 mg ONCE STA Administration Nalbuphine HCl 10 mg 07/14/22 04:16 07/14/22 04:27 Nalbuphine Hcl 10 Mg/Ml Ampul IVP 07/14/22 04:17 10 mg ONCE ONE Administration Ondansetron HCl 4 mg 07/14/22 03:05 07/14/22 03:27 Ondansetron Hcl/Pf 4 Mg/2 Ml Sdv IVP 07/14/22 03:06 4 mg ONCE STA Administration Prochlorperazine Edisylate 10 mg 07/14/22 03:49 07/14/22 03:57 Prochlorperazine Edisylate 10 Mg/2 Ml Sdv IVP 07/14/22 03:50 10 mg ONCE ONE Administration Vital Signs: Temp Pulse Resp BP Pulse Ox 07/14/22 05:49 101 H 22 H 172/98 H 95 07/14/22 02:42 97.8 F 102 H 20 223/125 H 99 Discharge Plan Discharge Patient Disposition: ADMITTED INPATIENT Discharge Problem: Hypertension, uncontrolled, Intractable nausea and vomiting, Headache Did you review [place] [employer] for ALL controlled substances?: Not Applicable ED Provider: ORIANA ROSS Condition: Stable <CARLENE LADD MD - Last Filed: 07/14/22 19:04> Physician Progress Note: [] <ORIANA ROSS MD - Last Filed: 07/14/22 10:07> Physician Progress Note: pt care assumed from Dr Ladd []unable to secure a transfer due to no beds available, so pt admitted to [facility] while awaiting a transfer
[2022-07-14 03:58] LABS: BILIRUBIN,URINE Negative (NEGATIVE); CLARITY,URINE Slightly (CLEAR); COLOR,URINE Yellow (YELLOW); GLUCOSE, URINE (UA) 2+ (NEGATIVE); KETONES,URINE 1+ (NEGATIVE); LEUKOCYTE ESTERASE ,URINE Negative (NEGATIVE); NITRITE,URINE Negative (NEGATIVE); PROTEIN,URINE 3+ (NEGATIVE); URINE, BLOOD 1+ (NEGATIVE); UROBILINOGEN,URINE 0.2 (0.2)
[2022-07-14 04:05] LABS: BACTERIA,URINE 4+ (NOT PRESENT); SQUAMOUS EPITHELIAL CELL,UR 0-2 (0-5); URINE WBC, MICROSCOPIC 0-2 (0-2)
[2022-07-14] MEDS ORDERED: TRANDATE IVP ONE (04:10)
[2022-07-14] MEDS ORDERED: NUBAIN IVP ONE (04:16)
[2022-07-14] MEDS ORDERED: HALDOL IVP ONE (05:10)
[2022-07-14] MEDS ORDERED: CARDENE 20 MG/200 ML NACL 20 MG/200 ML BAG IV STA (06:39)
[2022-07-14] MEDS ORDERED: SODIUM CHLORIDE 500 ML IV STA (06:44)
[2022-07-14] MEDS ORDERED: REGLAN IVP STA (07:04)
[2022-07-14] MEDS ORDERED: HUMULIN R SUBCUT PRN (07:20)
[2022-07-14] MEDS ORDERED: ZOFRAN 4 MG/2 ML IVP PRN (07:20)
[2022-07-14] MEDS ORDERED: TYLENOL PO PRN (07:20)
[2022-07-14] MEDS ORDERED: MORPHINE 2 MG/ML SYRINGE IVP PRN (07:20)
[2022-07-14] MEDS ORDERED: NORCO 5-325 PO PRN (07:20)
[2022-07-14] MEDS ORDERED: SODIUM CHLORIDE 1,000 ML IV SCH (07:30)
--- NOTE | 2022-07-14 08:05 | CT ---
EXAM: CT OF THE HEAD WITHOUT CONTRAST History: Headache, nausea and vomiting. Comparison: Head CT 06/14/2018 Technique: Multiplanar CT images through the head were obtained without the administration of IV con trast FINDINGS: The visualized paranasal sinuses and mastoid air cells are clear in general. No acute jj varial abnormalities. Intracranially the ventricular and cisternal spaces are normal in size, shape and configuration for a patient of this age. No dominant mass or midline shift. No hydrocephalous. No acute intracranial hemorrhage or abnormal extraaxial fluid collections. Impression: No acute intracranial process All CT scans are performed using dose optimization techniques as appropriate to the performed exam an d include at least one of the following: Automated exposure control, adjustment of the mA and/or kV according t o size, and the use of iterative reconstruction technique.
[2022-07-14 08:38] LABS: SARS COV-2 RNA RAPID NAAT NEGATIVE (NEGATIVE)
[2022-07-14] MEDS ORDERED: LOVENOX SUBCUT SCH (09:00)
[2022-07-14] MEDS ORDERED: TYLENOL PO ONE (09:01)
[2022-07-14] MEDS: CARDENE 20 MG/200 ML NACL 20 MG/200 ML BAG IV SCH ×2 (09:50→12:00)
[2022-07-14] MEDS ORDERED: CARDENE 20 MG/200 ML NACL 20 MG/200 ML BAG IV SCH (10:30)
[2022-07-14] MEDS: TYLENOL PO PRN (11:59)
[2022-07-14] MEDS: HUMULIN R SUBCUT PRN ×3 (12:44→20:41)
[2022-07-14] MEDS: BENADRYL PO SCH ×2 (14:48→20:27)
[2022-07-14] MEDS: NEURONTIN PO SCH ×2 (14:48→20:26)
[2022-07-14] MEDS: ZOFRAN 4 MG/2 ML IVP SCH ×2 (14:48→20:27)
[2022-07-14] MEDS: MORPHINE 2 MG/ML SYRINGE IVP PRN ×2 (15:28→19:38)
[2022-07-14] MEDS: SODIUM CHLORIDE 1,000 ML IV SCH ×2 (16:23→20:29)
[2022-07-14] MEDS: COLACE PO SCH (20:27)
[2022-07-14] MEDS ORDERED: ZANAFLEX PO SCH ×2 (21:00)
[2022-07-14] MEDS ORDERED: NON-FORMULARY MEDICATION (Docusate Sodium [Stool Softener] 100 mg Tablet) PO SCH (21:00)
[2022-07-14] MEDS ORDERED: NON-FORMULARY MEDICATION (Tizanidine 4 mg Capsule) PO SCH ×2 (21:00)
[2022-07-14] MEDS ORDERED: ELAVIL PO SCH (21:00)
[2022-07-14] MEDS: GLUCOPHAGE PO SCH (22:10)
[2022-07-14] MEDS: TORADOL IVP SCH (22:11)
[2022-07-15] MEDS: SODIUM CHLORIDE 1,000 ML IV SCH ×2 (03:17→10:18)
[2022-07-15] MEDS: TORADOL IVP SCH (04:55)
[2022-07-15 04:57] LABS: BASOPHILS # (AUTO) 0.1 K/uL (0-0.2); BASOPHILS % (AUTO) 0.8 % (0.0-3.0); EOSINOPHILS # (AUTO) 0.2 K/ul (0.0-0.7); EOSINOPHILS % (AUTO) 2.4 % (0.0-7.0); HEMATOCRIT 43.1 % (37.0-47.0); HEMOGLOBIN 13.2 g/dl (12.0-16.0); IMMATURE GRANULOCYTE % (AUTO) 0.3 % (0.0-5.0); LYMPHOCYTES # (AUTO) 1.6 K/uL (0.60-3.4); LYMPHOCYTES % (AUTO) 24.3 (10.0-50.0); MEAN CORPUSCULAR HEMOGLOBIN 29.3 pg (27.0-31.0); MEAN CORPUSCULAR HGB CONC 30.6 (31.8-35.4); MEAN CORPUSCULAR VOLUME 95.6 fl (81.0-99.0); MONOCYTES # (AUTO) 0.6 K/uL (0.4-2.0); MONOCYTES % (AUTO) 9.1 (0-10); NEUTROPHILS # (AUTO) 4.2 K/ul (2.0-6.9); NEUTROPHILS % (AUTO) 63.1 % (42.2-75.2); PLATELET COUNT 208 10^3/uL (140-440); RDW COEFFICIENT OF VARIATION 14.6 % (11.6-14.8); RED BLOOD COUNT 4.51 10^6/ul (4.20-5.40); WHITE BLOOD COUNT 6.62 K/ul (4.6-10.2)
[2022-07-15 05:10] LABS: ALANINE AMINOTRANSFERASE 15.2 U/L (0-35); ALBUMIN 3.89 g/dL (3.5-5.0); ASPARTATE AMINO TRANSFERASE 28.2 U/L (14-36); BILIRUBIN,TOTAL 0.39 mg/dL (0.2-1.3); BLOOD UREA NITROGEN 31.2 mg/dL (7-17); CALCIUM 8.88 mg/dL (8.4-10.2); CARBON DIOXIDE 29.9 mmol/L (22-30.0); CHLORIDE 102.8 mmol/L (98-107); CREATININE 1.59 mg/dL (0.60-1.30); GLUCOSE 162.9 mg/dL (74-106); POTASSIUM 4.17 mmol/L (3.5-5.1); SODIUM 136.7 mmol/L (134.5-145); TOTAL PROTEIN 7.03 g/dL (6.3-8.2)
[2022-07-15] MEDS ORDERED: AMARYL PO SCH (08:30)
[2022-07-15] MEDS ORDERED: PRAVACHOL PO SCH (09:00)
--- NOTE | 2022-07-15 09:09 | PCM.PROG ---
Date Seen by Provider: 07/15/22 Time Seen by Provider: 08:45 Subjective: Headache, nausea and vomiting resolved. Hypertension better controlled. Tolerating PO intake. Objective: Vitals: T=96.3 F, P=67, R=16, OX=896/72, SPO2=95 Alert and in NAD. HEENT: [] Oral mucosa moist. Neck: [] Lungs: [] Clear. BS equal. CVS: [] RRR. Abdomen: [] Soft, nontender. Extremities: [] Neurological: [] No sensory or motor deficits. Skin: [] Lab/Tests/Diagnostic Imaging: [] (1) Hypertension, uncontrolled: Status: Acute Code(s): I10 - Essential (primary) hypertension SNOMED Code(s): 97725808 Assessment: Well controlled. (2) Intractable nausea and vomiting: Status: Acute Code(s): R11.2 - Nausea with vomiting, unspecified SNOMED Code(s): 802006887 Assessment: Resolved. (3) Headache: Status: Acute Code(s): R51.9 - Headache, unspecified SNOMED Code(s): 37873302 Assessment: Resolved. (4) Acute upper urinary tract infection: Status: Acute Code(s): N39.0 - Urinary tract infection, site not specified SNOMED Code(s): 216024371 Plan: Will start Bactrim for UTI. Discharge today; all active problems resolved.
--- NOTE | 2022-07-15 09:13 | PCM.DC ---
Final Diagnosis: poorly controlled hypertension headache nausea and vomiting acute urinary tract infecion Physical Exam Appearance: Well-appearing, No pain distress and Well-nourished Ill-appearing: None Pain Distress: None Eyes: YULIANA and EOMI ENT: Nose normal and Oropharynx normal Neck: Supple Respiratory: Airway patent, Breath sounds clear and Breath sounds equal Cardiovascular: RRR, No rub and No murmur GI/: Soft, Nontender, No masses, Bowel sounds normal and No Organomegaly Musculoskeletal: Normal strength, ROM intact and No edema Skin: Warm, Dry and Normal color Neurological: Sensation intact, Motor intact, Cranial nerves intact, Alert and Oriented Psychiatric: Affect appropriate and Mood appropriate (1) Hypertension, uncontrolled: Status: Acute Code(s): I10 - Essential (primary) hypertension SNOMED Code(s): 40686750 (2) Intractable nausea and vomiting: Status: Acute Code(s): R11.2 - Nausea with vomiting, unspecified SNOMED Code(s): 016730922 (3) Headache: Status: Acute Code(s): R51.9 - Headache, unspecified SNOMED Code(s): 40583419 Qualifiers: Headache type: unspecified (4) Acute upper urinary tract infection: Status: Acute Code(s): N39.0 - Urinary tract infection, site not specified SNOMED Code(s): 779784214 Reason for Hospitalization: poorly controlled hypertension with headache, nausea and vomiting Prognosis/Condition at Discharge: Condition at discharge was good. Medications at Discharge: Patient discharged on Bactrim DS in addition to the same medications as at admission. Education Provided to Patient and Family: hypertension, urinary tract infection, headache Follow-ups: Follow up with your primary care provider within one week. Discharge Disposition: Home Hospital Course: Elevated hypertension initially treated with cardizem drip. Patient was weaned from this and her home medications resumed. Her BP was well controlled. Headache, nausea and vomiting resolved. She was noted to have a UTI and was placed on Bactrim. Plan: Discharge to home.
[2022-07-15] MEDS ORDERED: NON-FORMULARY MEDICATION (Nifedipine 60 mg Tablet Extended Release) PO SCH (09:15)
[2022-07-15] MEDS: BENADRYL PO SCH (09:28)
[2022-07-15] MEDS ORDERED: LASIX TAB PO SCH (09:30)
[2022-07-15] MEDS ORDERED: BACTRIM DS 800/160 MG PO SCH (09:30)
[2022-07-15] MEDS ORDERED: PROCARDIA XL PO SCH (09:30)
[2022-07-15] MEDS: GLUCOPHAGE PO SCH (09:32)
[2022-07-15] MEDS: NEURONTIN PO SCH (09:33)
[2022-07-15] MEDS: COLACE PO SCH (09:33)
[2022-07-15] MEDS: ZOFRAN 4 MG/2 ML IVP SCH (09:34)
[2022-07-15] MEDS: TYLENOL PO PRN (09:39)
[2022-07-15] MEDS ORDERED: TORADOL IVP ONE (11:35)
[2022-07-15] MEDS: HUMULIN R SUBCUT PRN (12:02)
[2022-07-15 13:57] VITALS: BP 135/89; TEMP 96.6
== END 2022-07-15 14:50 | disposition home or self-care (01) ==
LOC: ED 02:41 → MEDSURG B 10:16 → INTOOBSV 10:16 → MEDSURG B 10:52
PROVIDERS: ADMIT Emergency Medicine Emergency Medical Services; ATTEND Surgery
DX: N39.0 Urinary tract infection, site not specified; Z51.81 Encounter for therapeutic drug level monitoring; Z79.84 Long term (current) use of oral hypoglycemic drugs; I10 Essential (primary) hypertension; R51.9 Headache, unspecified; I25.2 Old myocardial infarction; Z90.13 Acquired absence of bilateral breasts and nipples; Z79.899 Other long term (current) drug therapy; Z20.822 Contact with and (suspected) exposure to COVID-19; R11.2 Nausea with vomiting, unspecified; K21.9 Gastro-esophageal reflux disease without esophagitis

== ENCOUNTER 2023-04-28 06:35 | Observation (INO) ==
--- NOTE | 2023-04-28 07:12 | ED.PDOC ---
General ED Provider: Dr. CAROL GERARD DO Chief Complaint: Nausea/Vomiting Stated Complaint: 58 year old female with PMHx of NIDDM, HTN, HLD, and morbid obesity who presents to the emergency department by POV with chief complaint of RUQ abdominal pain, nausea, and vomiting x 24 hours. Time Seen by Provider: 04/28/23 07:11 Information Source: Patient Primary Care Provider: LUTHER MARI Nursing and Triage Documentation Reviewed and Agree: Yes Review of Systems Review Of Systems Constitutional: Reports No symptoms All Other Systems: Reviewed and Negative [facility] Medical History (Updated 04/28/23 @ 14:06 by KEON DALY, RN) Diabetes E11.9 - Type 2 diabetes mellitus without complications (ICD-10) Elevated lipids E78.5 - Hyperlipidemia, unspecified (ICD-10) GERD (gastroesophageal reflux disease) K21.9 - Gastro-esophageal reflux disease without esophagitis (ICD-10) Myocardial infarct I21.9 - ST elevation (STEMI) myocardial infarction of unspecified site (ICD- 10) Cancer of breast C50.919 - Malignant neoplasm of unspecified site of unspecified female breast (ICD-10) Family History BROTHER Diabetes FATHER Diabetes Mother Hypertension Social History (Updated 04/28/23 @ 14:05 by KEON DALY RN) Smoking and tobacco status: Former smoker Surgical History Hip joint replacement status Z96.649 - Presence of unspecified artificial hip joint (ICD-10) History of heart artery stent Z95.5 - Presence of coronary angioplasty implant and graft (ICD-10) H/O bilateral mastectomy Z90.13 - Other specified postprocedural states (ICD-10) Female Reproductive History Menstrual Hx Hysterectomy: No Hx Tubal Ligation: Yes Physical Exam Physical Exam Appearance: Reports Ill-appearing, No pain distress and Well-nourished Ill-appearing: Mild Pain Distress: None Eyes: Reports YULIANA, EOMI and Conjunctiva clear ENT: Reports Ears normal, Nose normal and Oropharynx normal Neck: Supple Respiratory: Reports Airway patent, Breath sounds clear, Breath sounds equal and Respirations nonlabored Cardiovascular: Reports Pulses normal, No rub, No murmur and Tachycardia GI/: Reports Soft, No masses, Bowel sounds normal, No Organomegaly and Tender (RUQ) Musculoskeletal: Reports Normal strength, ROM intact, No edema and No calf tenderness Skin: Reports Warm, Dry and Normal color Neurological: Reports Sensation intact, Motor intact, Alert and Oriented Psychiatric: Reports Affect appropriate and Mood appropriate Critical Care Note Critical Care Note Total Critical Care Time (mins): 0 Course Course 04/28/23 07:13 04/28/23 07:13 Orders, Labs, Meds: Lab Review 04/28/23 04/28/23 04/28/23 07:13 07:14 07:20 WBC 10.60 H RBC 5.36 Hgb 15.6 Hct 50.0 H MCV 93.3 MCH 29.1 MCHC 31.2 L RDW Coeff of Connie 14.6 Plt Count 272 Immature Gran % (Auto) 0.5 Neut % (Auto) 91.4 H Lymph % (Auto) 6.0 L [place] % (Auto) 1.8 Eos % (Auto) 0.0 Baso % (Auto) 0.3 Neut # (Auto) 9.7 H Lymph # (Auto) 0.6 [place] # (Auto) 0.2 L Eos # (Auto) 0.0 Baso # (Auto) 0.0 Immature Gran # (Auto) 0.1 Sodium 135.7 Potassium 6.08 H* Chloride 102.9 Carbon Dioxide 15.3 L Anion Gap 23.58 BUN 25.5 H Creatinine 1.48 H Estimated GFR (MDRD) 36.00 BUN/Creatinine Ratio 17.22 Glucose 269.9 H Calcium 10.06 Total Bilirubin 0.54 AST 25.5 ALT 23.4 Alkaline Phosphatase 144.7 H Total Protein 8.80 H Albumin 4.71 Globulin 4.09 Albumin/Globulin Ratio 1.15 Lipase 86.6 Urine Color Urine Clarity Urine pH Ur Specific [place] Urine Protein Urine Glucose (UA) Urine Ketones Urine Blood Urine Nitrite Urine Bilirubin Urine Urobilinogen Ur Leukocyte Esterase Urine Microscopic WBC Ur Squamous Epith Cells Acetone, Qual Moderate Influ A Molecular Assay Influ B Molecular Assay SARS CoV-2 RNA Rapid VICKI 04/28/23 04/28/23 07:40 08:30 WBC RBC Hgb Hct MCV MCH MCHC RDW Coeff of Connie Plt Count Immature Gran % (Auto) Neut % (Auto) Lymph % (Auto) [place] % (Auto) Eos % (Auto) Baso % (Auto) Neut # (Auto) Lymph # (Auto) [place] # (Auto) Eos # (Auto) Baso # (Auto) Immature Gran # (Auto) Sodium Potassium Chloride Carbon Dioxide Anion Gap BUN Creatinine Estimated GFR (MDRD) BUN/Creatinine Ratio Glucose Calcium Total Bilirubin AST ALT Alkaline Phosphatase Total Protein Albumin Globulin Albumin/Globulin Ratio Lipase Urine Color Yellow Urine Clarity Clear Urine pH 5.5 Ur Specific [place] 1.015 Urine Protein 1+ H Urine Glucose (UA) 2+ H Urine Ketones 3+ H Urine Blood Trace-intact H Urine Nitrite Negative Urine Bilirubin Negative Urine Urobilinogen 0.2 Ur Leukocyte Esterase Negative Urine Microscopic WBC 0-2 Ur Squamous Epith Cells 5-10 Acetone, Qual Influ A Molecular Assay Negative by naat Influ B Molecular Assay Negative by naat SARS CoV-2 RNA Rapid VICKI Negative Orders Category Date Time Status ADMIT OBSERVATION [PLACE PATIENT OBSERVATION] .TO ADMISSION 04/28/23 10:20 Active MEDSURG (MONITORED BED) EKG-(ED ONLY) Stat CARDIO 04/28/23 07:15 Completed ACTIVITY .Early Mobilization for VTE Prevention CARE 04/28/23 10:45 Active BLOOD GLUCOSE MONITORING (MED/SURG) 0630,1100,1700,2100 CARE 04/28/23 10:46 Active GIVE HS SNACK 2100 CARE 04/28/23 10:46 Active INTAKE & OUTPUT Q8HR CARE 04/28/23 10:45 Active NPO REMINDER: IMAGING ONCE CARE 04/28/23 07:12 Completed NPO REMINDER: IMAGING ONCE CARE 04/28/23 09:13 Active REMINDER: Give Insulin if Needed 0630,1100,1700,2100 CARE 04/28/23 10:45 Active TELEMETRY MONITORING TELE CARE 04/28/23 10:20 Active VITAL SIGNS Q4HR CARE 04/28/23 10:45 Active CLEAR LIQUID DIET DIETARY 04/28/23 Lunch Ordered HS SNACK DIETARY 04/28/23 Dinner Ordered ACETONE, QUALITATIVE Stat LAB 04/28/23 07:20 Completed CBC W/ AUTO DIFF DAILY@0600 LAB 04/29/23 06:00 Ordered CBC W/ AUTO DIFF DAILY@0600 LAB 04/30/23 06:00 Ordered CBC W/ AUTO DIFF Stat LAB 04/28/23 07:13 Completed COMPREHENSIVE METABOLIC PANEL DAILY@0600 LAB 04/29/23 06:00 Ordered COMPREHENSIVE METABOLIC PANEL DAILY@0600 LAB 04/30/23 06:00 Ordered COMPREHENSIVE METABOLIC PANEL Stat LAB 04/28/23 07:13 Completed FLU A/B MOLECULAR Stat LAB 04/28/23 07:40 Completed LIPASE Stat LAB 04/28/23 07:14 Completed SARS COV-2 RNA RAPID VICKI Stat LAB 04/28/23 07:40 Completed URINALYSIS C & S IF INDICATED Stat LAB 04/28/23 08:30 Completed Dextrose 50 % in Water [Dextrose 50%-Water Abboject] Meds 04/28/23 07:49 Discontinued 50 ml IVP ONCE ONE Furosemide [Lasix] Meds 04/28/23 07:50 Discontinued 20 mg IVP ONCE ONE Insulin Regular, Human [Humulin R] Meds 04/28/23 07:47 Discontinued 10 unit IVP ONCE STA Insulin Regular, Human [Humulin R] Meds 04/28/23 10:49 Active See Protocol SUBCUT PRN PRN Ketorolac Tromethamine [Toradol] Meds 04/28/23 07:13 Discontinued 15 mg IVP ONCE ONE Metoclopramide HCl [Reglan] Meds 04/28/23 07:14 Discontinued 5 mg IVP ONCE ONE Metoclopramide HCl [Reglan] Meds 04/28/23 10:45 Active 5 mg IVP Q6H PRN Ondansetron HCl/Pf [Zofran 4 mg/2 ml] Meds 04/28/23 10:45 Active 4 mg IVP Q6H PRN Pantoprazole Sodium [Protonix] Meds 04/28/23 17:00 Active 40 mg IVP BIDAC2 Pantoprazole Sodium [Protonix] Meds 04/28/23 07:15 Discontinued 40 mg IVP ONCE ONE Sodium Chloride 0.9% [Sodium Chloride] 1,000 ml Meds 04/28/23 10:45 Discontinued IV 100 mls/hr Sodium Chloride 0.9% [Sodium Chloride] 1,000 ml Meds 04/28/23 07:13 Discontinued IV BOLUS CHEST, 1V AP ONLY Stat RADS 04/28/23 07:[address] ABDOMEN/PELVIS W CONTRAST Stat RADS 04/28/23 09:12 Completed US ABDOMEN RT UPPER QUAD [U/S ABDOMEN RT UPPER QUAD] RADS 04/28/23 07:12 Completed Stat Medications Generic Name Dose Route Start Last Admin Trade Name Freq PRN Reason Stop Dose Admin Hydrocodone Bitart/Acetaminophen 1 tab 04/28/23 13:20 04/28/23 14:57 Hydrocodone Bit/Acetaminophen 7.5/325 Mg Tablet PO 1 tab Q6HR PRN Administration Pain Amitriptyline HCl 50 mg 04/28/23 21:00 04/28/23 21:08 Amitriptyline Hcl 25 Mg Tablet PO 50 mg BEDTIME DREW Administration Aspirin 325 mg 04/29/23 09:00 Aspirin 325 Mg Tablet.Dr PO DAILY DREW Atorvastatin Calcium 40 mg 04/28/23 17:00 04/28/23 16:10 Atorvastatin Calcium 20 Mg Tablet PO 40 mg QPM DREW Administration Carvedilol 12.5 mg 04/28/23 17:00 04/28/23 17:14 Carvedilol 12.5 Mg Tablet PO 12.5 mg BIDWM2 DREW Administration Cholecalciferol 1 unit 04/29/23 09:00 Cholecalciferol (Vitamin D3) 1,000 Unit (25 Mcg) Tablet PO DAILY DREW Docusate Sodium 100 mg 04/28/23 21:00 04/28/23 21:09 Docusate Sodium 100 Mg Capsule PO 100 mg BID DREW Administration Hydralazine HCl 25 mg 04/28/23 13:20 Hydralazine Hcl 50 Mg Tablet PO QID PRN Hypertension Insulin Human Regular 0 unit 04/28/23 10:49 04/28/23 12:07 Insulin Regular, Human 100 Unit/Ml (10ml) Vial SUBCUT 3 unit PRN PRN Administration Hyperglycemia Protocol Levothyroxine Sodium 100 mcg 04/29/23 06:00 04/29/23 05:30 Levothyroxine Sodium 100 Mcg Tablet PO 100 mcg QDAC2 DREW Administration Levothyroxine Sodium 75 mcg 04/29/23 06:00 04/29/23 05:30 Levothyroxine Sodium 75 Mcg Tablet PO 75 mcg QDAC2 DREW Administration Metoclopramide HCl 5 mg 04/28/23 10:45 04/28/23 13:30 Metoclopramide Hcl 10 Mg/2 Ml IVP 5 mg Q6H PRN Administration Nausea / Vomiting Nifedipine 60 mg 04/29/23 09:00 Nifedipine 30 Mg Tab.Er.24 PO DAILY DREW Ondansetron HCl 4 mg 04/28/23 10:45 04/28/23 17:22 Ondansetron Hcl/Pf 4 Mg/2 Ml Sdv IVP 4 mg Q6H PRN Administration Nausea / Vomiting Pantoprazole Sodium 40 mg 04/28/23 17:00 04/29/23 05:29 Pantoprazole Sodium 40 Mg Vial IVP 40 mg BIDAC2 DREW Administration Tizanidine HCl 8 mg 04/28/23 21:00 04/28/23 21:08 Tizanidine Hcl 4 Mg Tablet PO 8 mg BEDTIME DREW Administration Tizanidine HCl 4 mg 04/29/23 09:00 Tizanidine Hcl 4 Mg Tablet PO 0900,1500 DREW Valsartan 320 mg 04/29/23 09:00 Valsartan 160 Mg Tablet PO DAILY DREW Discontinued Medications Generic Name Dose Route Start Last Admin Trade Name Freq PRN Reason Stop Dose Admin Dextrose 50 ml 04/28/23 07:49 04/28/23 07:58 Dextrose 50 % In Water 50 Ml Disp.Syrin IVP 04/28/23 07:50 50 ml ONCE ONE Administration Furosemide 20 mg 04/28/23 07:50 04/28/23 07:58 Furosemide Inj 20 Mg/2 Ml Vial IVP 04/28/23 07:51 20 mg ONCE ONE Administration Hydralazine HCl 10 mg 04/28/23 11:54 04/28/23 12:10 Hydralazine Hcl 20 Mg/Ml Sdv IVP 04/28/23 11:55 10 mg ONCE STA Administration Sodium Chloride 1,000 mls @ 1,000 mls/hr 04/28/23 07:13 04/28/23 08:53 Sodium Chloride IV 04/28/23 08:12 Infused BOLUS STA Infusion Sodium Chloride 1,000 mls @ 100 mls/hr 04/28/23 10:45 04/28/23 11:47 Sodium Chloride IV 04/28/23 20:44 100 mls/hr .Q10H STA Administration Prochlorperazine Edisylate 10 52 mls @ 100 mls/hr 04/28/23 18:40 04/28/23 19:41 mg/ Sodium Chloride IV 04/28/23 19:11 100 mls/hr ONCE ONE Administration Insulin Human Regular 10 unit 04/28/23 07:47 04/28/23 07:59 Insulin Regular, Human 100 Unit/Ml (10ml) Vial IVP 04/28/23 07:48 10 unit ONCE STA Administration Ketorolac Tromethamine 15 mg 04/28/23 07:13 04/28/23 07:32 Ketorolac Tromethamine 15 Mg/Ml Vial IVP 04/28/23 07:14 15 mg ONCE ONE Administration Levothyroxine Sodium 175 mcg 04/29/23 06:00 Levothyroxine Sodium 100 Mcg Tablet PO QDAC2 DREW Metoclopramide HCl 5 mg 04/28/23 07:14 04/28/23 07:32 Metoclopramide Hcl 10 Mg/2 Ml IVP 04/28/23 07:15 5 mg ONCE ONE Administration Pantoprazole Sodium 40 mg 04/28/23 07:15 04/28/23 07:33 Pantoprazole Sodium 40 Mg Vial IVP 04/28/23 07:16 40 mg ONCE ONE Administration Vital Signs: Temp Pulse Resp BP Pulse Ox 04/28/23 06:39 97.7 F 128 H 22 H 160/113 H 98 Discharge Plan Discharge Patient Disposition: PLACED OBSERVATION Discharge Problem: SOPHIE (acute kidney injury), Acute hyperkalemia Did you review [place] SE[employer] for ALL controlled substances?: Not Applicable ED Provider: CAROL GERARD Condition: Stable Physician Progress Note: []
[2023-04-28] MEDS ORDERED: SODIUM CHLORIDE 1,000 ML IV STA ×2 (07:13→10:45)
[2023-04-28] MEDS ORDERED: TORADOL IVP ONE (07:13)
[2023-04-28] MEDS ORDERED: REGLAN IVP ONE (07:14)
[2023-04-28] MEDS ORDERED: PROTONIX IVP ONE (07:15)
[2023-04-28 07:24] LABS: BASOPHILS % (AUTO) 0.3 % (0.0-3.0); HEMOGLOBIN 15.6 g/dl (12.0-16.0); IMMATURE GRANULOCYTE # (AUTO) 0.1 (0.0-1.0); IMMATURE GRANULOCYTE % (AUTO) 0.5 % (0.0-5.0); LYMPHOCYTES # (AUTO) 0.6 K/uL (0.60-3.4); MEAN CORPUSCULAR HEMOGLOBIN 29.1 pg (27.0-31.0); MEAN CORPUSCULAR HGB CONC 31.2 (31.8-35.4); MEAN CORPUSCULAR VOLUME 93.3 fl (81.0-99.0); MONOCYTES # (AUTO) 0.2 K/uL (0.4-2.0); MONOCYTES % (AUTO) 1.8 (0-10); NEUTROPHILS # (AUTO) 9.7 K/ul (2.0-6.9); NEUTROPHILS % (AUTO) 91.4 % (42.2-75.2); PLATELET COUNT 272 10^3/uL (140-440); RDW COEFFICIENT OF VARIATION 14.6 % (11.6-14.8); RED BLOOD COUNT 5.36 10^6/ul (4.20-5.40)
[2023-04-28 07:43] LABS: ALANINE AMINOTRANSFERASE 23.4 U/L (0-35); ALBUMIN 4.71 g/dL (3.5-5.0); ALKALINE PHOSPHATASE 144.7 U/L (53-141); ASPARTATE AMINO TRANSFERASE 25.5 U/L (14-36); BILIRUBIN,TOTAL 0.54 mg/dL (0.2-1.3); BLOOD UREA NITROGEN 25.5 mg/dL (7-17); CALCIUM 10.06 mg/dL (8.4-10.2); CARBON DIOXIDE 15.3 mmol/L (22-30.0); CHLORIDE 102.9 mmol/L (98-107); CREATININE 1.48 mg/dL (0.60-1.30); GLUCOSE 269.9 mg/dL (74-106); SODIUM 135.7 mmol/L (134.5-145); TOTAL PROTEIN 8.8 g/dL (6.3-8.2)
[2023-04-28 07:47] LABS: POTASSIUM 6.08 mmol/L (3.5-5.1)
[2023-04-28] MEDS ORDERED: HUMULIN R IVP STA (07:47)
[2023-04-28] MEDS ORDERED: DEXTROSE 50%-WATER ABBOJECT IVP ONE (07:49)
[2023-04-28] MEDS ORDERED: LASIX IVP ONE (07:50)
--- NOTE | 2023-04-28 07:55 | US ---
EXAM: ULTRASOUND OF THE RIGHT UPPER QUADRANT (LIMITED ABDOMEN) HISTORY: Right upper quadrant pain, nausea, and vomiting. TECHNIQUE: Sonography of the right upper quadrant of the abdomen was performed. Color Doppler imagin g and spectral Doppler imaging of the portal vein was also performed. Images were obtained and store d in a permanent archive. COMPARISON: None. FINDINGS: The technologist noted limitations of the examination because of patient body habitus and bowel gas. Pancreas: Completely obscured by bowel gas. Liver: Normal homogeneous echotexture. No visible liver mass. Main portal vein: Patent with normal antegrade flow. Biliary: Common bile duct measures 7.0 mm. Cholelithiasis. The gallbladder is not overdistended. N o gallbladder wall thickening or pericholecystic fluid. Negative sonographic Ortega sign. Right Kidney: Obscured by bowel gas. IVC: Obscured by bowel gas. Other: No ascites. IMPRESSION: 1. Limited examination as described. 2. Cholelithiasis with no sonographic evidence of cholecystitis. 3. No biliary tree dilatation.
[2023-04-28 08:03] LABS: MOLECULAR FLU A NEGATIVE BY NAAT (NEGATIVE); MOLECULAR FLU B NEGATIVE BY NAAT (NEGATIVE)
[2023-04-28 08:04] LABS: SARS COV-2 RNA RAPID NAAT NEGATIVE (NEGATIVE)
--- NOTE | 2023-04-28 08:19 | DI ---
EXAM: CHEST RADIOGRAPH TECHNIQUE: Single frontal chest radiograph. HISTORY: Chest pain. COMPARISON: 04/02/2023 and older studies. FINDINGS: The patient is mildly leaning and rotated to the right. Left subclavian central venous mediport cath eter again noted, tip at the cavoatrial junction. No pulmonary infiltrate is identified. No pleural effusion or pneumothorax is seen. Stable cardiomegaly. No acute displaced rib fractures are identified. Surgical clips in both axilla, again noted. IMPRESSION: 1. No acute findings in the chest.
[2023-04-28 08:44] LABS: BILIRUBIN,URINE Negative (NEGATIVE); CLARITY,URINE Clear (CLEAR); COLOR,URINE Yellow (YELLOW); GLUCOSE, URINE (UA) 2+ (NEGATIVE); KETONES,URINE 3+ (NEGATIVE); LEUKOCYTE ESTERASE ,URINE Negative (NEGATIVE); NITRITE,URINE Negative (NEGATIVE); PH,URINE 5.5 (5-9); PROTEIN,URINE 1+ (NEGATIVE); URINE, BLOOD Trace-intact (NEGATIVE); UROBILINOGEN,URINE 0.2 (0.2)
[2023-04-28 08:50] LABS: URINE WBC, MICROSCOPIC 0-2 (0-2)
--- NOTE | 2023-04-28 10:11 | CT ---
EXAM: CT ABDOMEN WITH CONTRAST. CT PELVIS WITH CONTRAST. HISTORY: Generalized abdominal pain. COMPARISON: Ultrasound earlier the same day. CT 08/08/2022. TECHNIQUE: Multiple axial images of the abdomen and pelvis were obtained following intravenous admin istration of 90 mL Visipaque 320, low osmolar. Images were reformatted in the sagittal and coronal p ki. FINDINGS: Dependent subsegmental atelectasis noted in the lung bases. Degenerative changes present in the spine and right hip. Left hip arthroplasty hardware noted. Mild gallbladder distension with some calcified stones. No leyla pericholecystic inflammation or gal lbladder wall thickening by CT. Liver, pancreas, spleen, adrenal glands normal. There is symmetric renal enhancement without hydronephrosis. There is mild symmetric bilateral perinephric stranding, s table from prior imaging, likely suggestive of chronic renal disease. Right renal cyst axial image 4 2 The bowel is normal in course and caliber without obstruction or inflammation. The appendix is tirso l. Lobular uterine contour with coarse calcification consistent with fibroids, stable. Bladder is tirso l. Phleboliths in the pelvis. There is no free fluid, free air or lymphadenopathy. Tiny fatty umbi lical hernia noted. Atherosclerotic calcifications present without aneurysm. IMPRESSION: 1. Cholelithiasis within a distended gallbladder. No leyla gallbladder inflammation. Correlation f or signs of cholecystitis advised. 2. Additional findings are stable from prior imaging. All CT scans are performed using dose optimization techniques as appropriate to the performed exam an d include at least one of the following: Automated exposure control, adjustment of the mA and/or kV according t o size, and the use of iterative reconstruction technique.
[2023-04-28] MEDS ORDERED: REGLAN IVP PRN (10:45)
[2023-04-28] MEDS: ZOFRAN 4 MG/2 ML IVP PRN ×2 (11:52→17:22)
[2023-04-28] MEDS ORDERED: HYDRALAZINE HCL IVP STA (11:54)
[2023-04-28] MEDS: HUMULIN R SUBCUT PRN (12:07)
--- NOTE | 2023-04-28 12:12 | PCM ---
Date of Service Date Seen by Provider: 04/28/23 Time Seen by Provider: 11:30 Admit Day/Time Admission Date: 04/28/23 Reason for Admission Chief Complaint: HYPERKALEMIA Hospital Provider Hospital Provider: ROHAN DARDEN, [facility] [place] Primary Care Physician Primary Care Physician: LUTHER MARI History of Present Illness History of Present Illness: 58 yo female presented to the ER with persistent vomiting. Patient states that she has been vomiting since yesterday. Had a recent change in her Trulicity dose almost 2 weeks ago. This issue happened when she was on ozempic and had a dose adjustment. Denies any fever, chills, SOB, chest pain, diarrhea, or urinary symptoms. Does report headache due to high BP. Has been unable to take any of her medications since the vomiting started. Has vomited 1-2 times today. Denies any blood present. Case Discussed With Case Discussed With: Patient's case was discussed with the ER Physicians, Dr. Thapa [facility] Medical History Elevated lipids E78.5 - Hyperlipidemia, unspecified (ICD-10) GERD (gastroesophageal reflux disease) K21.9 - Gastro-esophageal reflux disease without esophagitis (ICD-10) Myocardial infarct I21.9 - ST elevation (STEMI) myocardial infarction of unspecified site (ICD- 10) Cancer of breast C50.919 - Malignant neoplasm of unspecified site of unspecified female breast (ICD-10) Surgical History Hip joint replacement status Z96.649 - Presence of unspecified artificial hip joint (ICD-10) History of heart artery stent Z95.5 - Presence of coronary angioplasty implant and graft (ICD-10) H/O bilateral mastectomy Z90.13 - Other specified postprocedural states (ICD-10) Family History BROTHER Diabetes FATHER Diabetes Mother Hypertension Allergies Allergies Allergy/AdvReac Type Severity Reaction Status Date / Time cefaclor [From Ceclor] AdvReac Swelling Verified 04/28/23 07:07 ibuprofen [From Motrin] AdvReac Nausea Verified 04/28/23 07:07 levofloxacin [From Levaquin] AdvReac Nausea Verified 04/28/23 07:07 Penicillins AdvReac Unknown Verified 04/28/23 07:07 Current Medications Home Medications levothyroxine 100 mcg tablet (Synthroid) 175 mcg PO QDAC 06/28/15 [History Confirmed 04/28/23 Last Taken 07/13/22 150 mg] metformin 500 mg tablet 500 mg PO BIDWM 06/28/15 [History Confirmed 04/28/23 Last Taken 07/13/22 500 mg] metoprolol succinate 50 mg tablet,extended release 24 hr 100 mg PO BID 06/28/15 [History Confirmed 04/28/23 Last Taken 07/13/22 100 mg] diphenhydramine HCl 25 mg capsule (Benadryl) 50 mg PO TID 01/08/21 [History Confirmed 04/28/23 Last Taken 07/13/22 50 mg] hydrocodone 7.5 mg-acetaminophen 325 mg tablet 1 tab PO Q6HR PRN Pain 01/08/21 [History Confirmed 04/28/23 Last Taken Unknown] nifedipine 60 mg tablet,extended release 60 mg PO DAILY 01/08/21 [History Confirmed 04/28/23 Last Taken 07/13/22 60 mg] docusate sodium 100 mg tablet (Stool Softener) 100 mg PO BID 04/12/21 [History Confirmed 04/28/23 Last Taken 07/13/22 200 mg] glimepiride 1 mg tablet 2 mg PO DAILY 04/12/21 [History Confirmed 04/28/23 Last Taken 07/13/22 2 mg] amitriptyline 50 mg tablet 50 mg PO BEDTIME 07/14/22 [History Confirmed 04/28/23 Last Taken 07/13/22 50 mg] furosemide 40 mg tablet 40 mg PO DAILY 07/14/22 [History Confirmed 04/28/23 Last Taken 07/07/22 40] pravastatin 20 mg tablet 40 mg PO DAILY 07/14/22 [History Confirmed 04/28/23 Last Taken 07/13/22 40 mg] tizanidine 4 mg capsule 4 mg PO BID 07/14/22 [History Confirmed 04/28/23 Last Taken Unknown] tizanidine 4 mg capsule 8 mg PO BEDTIME 07/14/22 [History Confirmed 04/28/23 Last Taken 07/13/22 8 mg] cholecalciferol (vitamin D3) 125 mcg (5,000 unit) tablet (Vitamin D3) 125 mcg PO DAILY 08/08/22 [History Confirmed 04/28/23 Last Taken Unknown] losartan 100 mg tablet 100 mg PO DAILY 08/08/22 [History Confirmed 04/28/23 Last Taken Unknown] ondansetron 8 mg disintegrating tablet 8 mg PO Q8H PRN nausea and vomiting #14 tabs 08/08/22 [Rx Confirmed 04/28/23 Last Taken Unknown] aspirin 325 mg tablet 325 mg PO DAILY 04/28/23 [History Confirmed 04/28/23 Last Taken Unknown] atorvastatin 40 mg tablet 40 mg PO QPM 04/28/23 [History Confirmed 04/28/23 Last Taken Unknown] carvedilol 12.5 mg tablet 12.5 mg PO BID 04/28/23 [History Confirmed 04/28/23 Last Taken Unknown] hydralazine 25 mg tablet 25 mg PO QID PRN BP over 170 04/28/23 [History Confirmed 04/28/23 Last Taken Unknown] ketorolac 10 mg tablet 10 mg PO Q4-6H PRN headache 04/28/23 [History Confirmed 04/28/23 Last Taken Unknown] spironolactone 25 mg tablet 25 mg PO DAILY 04/28/23 [History Confirmed 04/28/23 Last Taken Unknown] valsartan 320 mg tablet 320 mg PO DAILY 04/28/23 [History Confirmed 04/28/23 Last Taken Unknown] Home Sodium Chloride (Sodium Chloride) 1,000 mls @ 100 mls/hr IV .Q10H STA Stop: 04/28/23 20:44 Last Admin: 04/28/23 11:47 Dose: 100 mls/hr Insulin Human Regular (Insulin Regular, Human 100 Unit/Ml (10ml) Vial) 0 unit SUBCUT PRN PRN; Protocol PRN Reason: Hyperglycemia Last Admin: 04/28/23 12:07 Dose: 3 unit Metoclopramide HCl (Metoclopramide Hcl 10 Mg/2 Ml) 5 mg IVP Q6H PRN PRN Reason: Nausea / Vomiting Ondansetron HCl (Ondansetron Hcl/Pf 4 Mg/2 Ml Sdv) 4 mg IVP Q6H PRN PRN Reason: Nausea / Vomiting Last Admin: 04/28/23 11:52 Dose: 4 mg Pantoprazole Sodium (Pantoprazole Sodium 40 Mg Vial) 40 mg IVP BIDAC2 DREW Discontinued Medications Dextrose (Dextrose 50 % In Water 50 Ml Disp.Syrin) 50 ml IVP ONCE ONE Stop: 04/28/23 07:50 Last Admin: 04/28/23 07:58 Dose: 50 ml Furosemide (Furosemide Inj 20 Mg/2 Ml Vial) 20 mg IVP ONCE ONE Stop: 04/28/23 07:51 Last Admin: 04/28/23 07:58 Dose: 20 mg Hydralazine HCl (Hydralazine Hcl 20 Mg/Ml Sdv) 10 mg IVP ONCE STA Stop: 04/28/23 11:55 Last Admin: 04/28/23 12:10 Dose: 10 mg Sodium Chloride (Sodium Chloride) 1,000 mls @ 1,000 mls/hr IV BOLUS STA Stop: 04/28/23 08:12 Last Infusion: 04/28/23 08:53 Dose: Infused Insulin Human Regular (Insulin Regular, Human 100 Unit/Ml (10ml) Vial) 10 unit IVP ONCE STA Stop: 04/28/23 07:48 Last Admin: 04/28/23 07:59 Dose: 10 unit Ketorolac Tromethamine (Ketorolac Tromethamine 15 Mg/Ml Vial) 15 mg IVP ONCE ONE Stop: 04/28/23 07:14 Last Admin: 04/28/23 07:32 Dose: 15 mg Metoclopramide HCl (Metoclopramide Hcl 10 Mg/2 Ml) 5 mg IVP ONCE ONE Stop: 04/28/23 07:15 Last Admin: 04/28/23 07:32 Dose: 5 mg Pantoprazole Sodium (Pantoprazole Sodium 40 Mg Vial) 40 mg IVP ONCE ONE Stop: 04/28/23 07:16 Last Admin: 04/28/23 07:33 Dose: 40 mg Review of Systems Constitutional: Reports No symptoms Head: Reports Normocephalic Eyes: Reports No symptoms Ears: Reports No symptoms Nose: Reports No symptoms Mouth: Reports No symptoms Throat: Reports No symptoms Cardiovascular: Reports High Blood Pressure Respiratory: Reports No symptoms Gastrointestinal: Reports Nausea and Vomiting Genitourinary: Reports No Symptoms Musculoskeletal: Reports No symptoms Endocrine: Reports No symptoms Hematology: Reports No symptoms Immunology: Reports No symptoms Neurological: Reports Headache Psychiatric: Reports No symptoms Physical examination Most Recent Vital Signs: Most Recent Vital Signs Temperature 97.7 F 04/28/23 06:39 Temperature Source Oral 04/28/23 06:39 Pulse Rate 128 H 04/28/23 06:39 Respiratory Rate 22 H 04/28/23 06:39 Blood Pressure 160/113 H 04/28/23 06:39 O2 Sat by Pulse Oximetry 98 04/28/23 06:39 Height 5 ft 3 in 04/28/23 06:39 Weight 267 lb 04/28/23 06:39 Telemetry Heart Rate 70 07/15/22 07:00 Telemetry SPO2 97 10/05/14 18:27 Appearance: Positive No Apparent Distress, Alert and Oriented x3 and Obese Skin: Positive Warm HEENT: Positive Normocephalic and PERRLA Neck: Positive Supple and Midline Trachea Chest/Lungs: Positive Symmetrical With Equal Breath Sounds, Clear to Auscultation Bilaterally and Good Air Movement all 4 Lung Reed Heart: Positive RRR and Pulses Normal GI/: Positive Soft, Nontender, Bowel Sounds Normal and No Distention Musculoskeletal: Positive Not Examined Extremities: Positive Edema (+1-2 pitting edema), Intact Peripheral Pulses, Stable Joints Without Laxity and Good ROM in All Joints Neurological: Positive Sensation Intact, Motor intact, Reflexes Intact, Alert and Oriented Psychiatric: Positive Oriented x4, Appropriate Mood and Appropriate Affect Labs This Visit Labs This Visit: Labs This Visit 04/28/23 04/28/23 04/28/23 07:13 07:14 07:20 WBC 10.60 H RBC 5.36 Hgb 15.6 Hct 50.0 H MCV 93.3 MCH 29.1 MCHC 31.2 L RDW Coeff of Connie 14.6 Plt Count 272 Immature Gran % (Auto) 0.5 Neut % (Auto) 91.4 H Lymph % (Auto) 6.0 L [place] % (Auto) 1.8 Eos % (Auto) 0.0 Baso % (Auto) 0.3 Neut # (Auto) 9.7 H Lymph # (Auto) 0.6 [place] # (Auto) 0.2 L Eos # (Auto) 0.0 Baso # (Auto) 0.0 Immature Gran # (Auto) 0.1 Sodium 135.7 Potassium 6.08 H* Chloride 102.9 Carbon Dioxide 15.3 L Anion Gap 23.58 BUN 25.5 H Creatinine 1.48 H Estimated GFR (MDRD) 36.00 BUN/Creatinine Ratio 17.22 Glucose 269.9 H Calcium 10.06 Total Bilirubin 0.54 AST 25.5 ALT 23.4 Alkaline Phosphatase 144.7 H Total Protein 8.80 H Albumin 4.71 Globulin 4.09 Albumin/Globulin Ratio 1.15 Lipase 86.6 Urine Color Urine Clarity Urine pH Ur Specific Col[place]er Urine Protein Urine Glucose (UA) Urine Ketones Urine Blood Urine Nitrite Urine Bilirubin Urine Urobilinogen Ur Leukocyte Esterase Urine Microscopic WBC Ur Squamous Epith Cells Acetone, Qual Moderate Influ A Molecular Assay Influ B Molecular Assay SARS CoV-2 RNA Rapid VICKI 04/28/23 04/28/23 07:40 08:30 WBC RBC Hgb Hct MCV MCH MCHC RDW Coeff of Connie Plt Count Immature Gran % (Auto) Neut % (Auto) Lymph % (Auto) [place] % (Auto) Eos % (Auto) Baso % (Auto) Neut # (Auto) Lymph # (Auto) [place] # (Auto) Eos # (Auto) Baso # (Auto) Immature Gran # (Auto) Sodium Potassium Chloride Carbon Dioxide Anion Gap BUN Creatinine Estimated GFR (MDRD) BUN/Creatinine Ratio Glucose Calcium Total Bilirubin AST ALT Alkaline Phosphatase Total Protein Albumin Globulin Albumin/Globulin Ratio Lipase Urine Color Yellow Urine Clarity Clear Urine pH 5.5 Ur Specific [place] 1.015 Urine Protein 1+ H Urine Glucose (UA) 2+ H Urine Ketones 3+ H Urine Blood Trace-intact H Urine Nitrite Negative Urine Bilirubin Negative Urine Urobilinogen 0.2 Ur Leukocyte Esterase Negative Urine Microscopic WBC 0-2 Ur Squamous Epith Cells 5-10 Acetone, Qual Influ A Molecular Assay Negative by naat Influ B Molecular Assay Negative by naat SARS CoV-2 RNA Rapid VICKI Negative Imaging Imaging: EXAM: CT ABDOMEN WITH CONTRAST. CT PELVIS WITH CONTRAST. COMPARISON: Ultrasound earlier the same day. CT 08/08/2022. FINDINGS: Dependent subsegmental atelectasis noted in the lung bases. Degenerative changes present in the spine and right hip. Left hip arthroplasty hardware noted. Mild gallbladder distension with some calcified stones. No leyla pericholecystic inflammation or gallbladder wall thickening by CT. Liver, panc reas, spleen, adrenal glands normal. There is symmetric renal enhancement without hydronephrosis. There is mild symmetric bilateral perinephric stranding, stable from prior imaging, likely suggestive of chronic renal disease. Right renal cyst axial image 42 The bowel is normal in course and caliber without obstruction or inflammation. The appendix is normal. Lobular uterine contour with coarse calcification consistent with fibroids, stable. Bladder is normal. Phleboliths in the pelvis. There is no free fluid, free air or lymphadenopathy. Tiny fatty umbilical hernia noted. Atherosc lerotic calcifications present without aneurysm. IMPRESSION: 1. Cholelithiasis within a distended gallbladder. No leyla gallbladder inflammation. Correlation for signs of cholecystitis advised. 2. Additional findings are stable from prior imaging. EXAM: ULTRASOUND OF THE RIGHT UPPER QUADRANT (LIMITED ABDOMEN) FINDINGS: The technologist noted limitations of the examination because of patient body habitus and bowel gas. Pancreas: Completely obscured by bowel gas. Liver: Normal homogeneous echotexture. No visible liver mass. Main portal vein: Patent with normal antegrade flow. Biliary: Common bile duct measures 7.0 mm. Cholelithiasis. The gallbladder is not overdistended. No gallbladder wall thickening or pericholecystic fluid. Negative sonographic Ortega sign. Right Kidney: Obscured by bowel gas. IVC: Obscured by bowel gas. Other: No ascites. IMPRESSION: 1. Limited examination as described. 2. Cholelithiasis with no sonographic evidence of cholecystitis. 3. No biliary tree dilatation. Review Statement Review Statement: I have independently reviewed and interpreted the labs/EKGs/imaging that were ordered by the ER provider. I have reviewed all outside records that are available currently in our EMR including imaging/notes/labs from previous visits. Plan Plan: 1. SOPHIE secondary to vomiting - NS@100mL/hr, avoid nephrotoxins/hypotension 2. Hyperkalemia - received calcium gluc, insulin, and D50 in ER, IVF, telemetry, repeat bmp @1600 and will address further if needed 3. Intractable N/V - protonix 40 mg BID, zofran 4 mg Q6H prn, reglan 5 mg Q6H prn, clear liquids when able to tolerate 4. Hypertensive Urgency - secondary to inability to take medications due to vomiting, will resume home medications when no longer vomiting, hydralazine 10 mg once ordered 5. DM type 2 - accuchecks qid with ssi, hold oral agents, ADA diet when diet able to be advanced, trulicity dose recently increased to max dose - adjust on discharge 6. Hyperlipidemia - chronic, continue home medications DVT Prophylaxis: Up ad jennifer Time Spent: Greater than 80 minutes spent with patient, 50% of the time spent with this patient was devoted to counseling and coordination of care. [facility] Plannin minutes spent discussing advance care planning. Disposition: Admit to: Med/Surg Observation Discussed Plan of Care with Dr. Patricia Green. Medications Medication Orders: Medications Ordered Category Date Time Status Insulin Regular, Human [Humulin R] Meds 04/28/23 10:49 Active See Protocol SUBCUT PRN PRN Metoclopramide HCl [Reglan] Meds 04/28/23 10:45 Active 5 mg IVP Q6H PRN Ondansetron HCl/Pf [Zofran 4 mg/2 ml] Meds 04/28/23 10:45 Active 4 mg IVP Q6H PRN Pantoprazole Sodium [Protonix] Meds 04/28/23 17:00 Active 40 mg IVP BIDAC2 Sodium Chloride 0.9% [Sodium Chloride] 1,000 ml Meds 04/28/23 10:45 Active IV 100 mls/hr
[2023-04-28 12:22] VITALS: BMI 50.5
[2023-04-28] MEDS ORDERED: NORCO 7.5-325 PO PRN (13:20)
[2023-04-28] MEDS ORDERED: APRESOLINE PO PRN (13:20)
[2023-04-28] MEDS: LIPITOR PO SCH (16:10)
[2023-04-28] MEDS: PROTONIX IVP SCH (16:10)
[2023-04-28] MEDS: COREG PO SCH (17:14)
[2023-04-28] MEDS ORDERED: COMPAZINE 10 MG in SODIUM CHLORIDE 50 ML IV ONE (18:40)
[2023-04-28] MEDS ORDERED: COMPAZINE ONE (19:35)
[2023-04-28] MEDS ORDERED: NON-FORMULARY MEDICATION (Docusate Sodium [Stool Softener] 100 mg Tablet) PO SCH (21:00)
[2023-04-28] MEDS ORDERED: NON-FORMULARY MEDICATION (Tizanidine 4 mg Capsule) PO SCH ×2 (21:00)
[2023-04-28] MEDS: ZANAFLEX PO SCH (21:08)
[2023-04-28] MEDS: ELAVIL PO SCH (21:08)
[2023-04-28] MEDS: COLACE PO SCH (21:09)
[2023-04-29] MEDS: PROTONIX IVP SCH ×2 (05:29→16:51)
[2023-04-29] MEDS: SYNTHROID PO SCH ×2 (05:30)
[2023-04-29] MEDS ORDERED: SYNTHROID PO SCH (06:00)
[2023-04-29 06:09] LABS: BASOPHILS % (AUTO) 0.4 % (0.0-3.0); EOSINOPHILS # (AUTO) 0.2 K/ul (0.0-0.7); EOSINOPHILS % (AUTO) 1.8 % (0.0-7.0); HEMATOCRIT 44.9 % (37.0-47.0); IMMATURE GRANULOCYTE % (AUTO) 0.4 % (0.0-5.0); LYMPHOCYTES # (AUTO) 1.7 K/uL (0.60-3.4); LYMPHOCYTES % (AUTO) 18.6 (10.0-50.0); MEAN CORPUSCULAR HEMOGLOBIN 29.2 pg (27.0-31.0); MEAN CORPUSCULAR HGB CONC 31.2 (31.8-35.4); MEAN CORPUSCULAR VOLUME 93.5 fl (81.0-99.0); MONOCYTES # (AUTO) 0.8 K/uL (0.4-2.0); MONOCYTES % (AUTO) 8.6 (0-10); NEUTROPHILS # (AUTO) 6.3 K/ul (2.0-6.9); NEUTROPHILS % (AUTO) 70.2 % (42.2-75.2); PLATELET COUNT 231 10^3/uL (140-440); RDW COEFFICIENT OF VARIATION 14.8 % (11.6-14.8); WHITE BLOOD COUNT 9.03 K/ul (4.6-10.2)
[2023-04-29 06:17] LABS: ALANINE AMINOTRANSFERASE 17.6 U/L (0-35); ALBUMIN 3.73 g/dL (3.5-5.0); ALKALINE PHOSPHATASE 111.4 U/L (53-141); ASPARTATE AMINO TRANSFERASE 23.8 U/L (14-36); BILIRUBIN,TOTAL 0.59 mg/dL (0.2-1.3); BLOOD UREA NITROGEN 24.3 mg/dL (7-17); CALCIUM 8.95 mg/dL (8.4-10.2); CARBON DIOXIDE 22.3 mmol/L (22-30.0); CHLORIDE 107.2 mmol/L (98-107); CREATININE 1.7 mg/dL (0.60-1.30); GLUCOSE 122.3 mg/dL (74-106); POTASSIUM 5.15 mmol/L (3.5-5.1); SODIUM 136.7 mmol/L (134.5-145); TOTAL PROTEIN 7.15 g/dL (6.3-8.2)
[2023-04-29] MEDS ORDERED: NON-FORMULARY MEDICATION (Nifedipine 60 mg Tablet Extended Release) PO SCH (09:00)
[2023-04-29] MEDS ORDERED: PROCARDIA XL PO SCH ×2 (09:00)
[2023-04-29] MEDS ORDERED: ASPIRIN 325 MG PO SCH (09:00)
[2023-04-29] MEDS: ZANAFLEX PO SCH ×3 (09:09→20:47)
[2023-04-29] MEDS: COREG PO SCH ×2 (09:09→16:51)
[2023-04-29] MEDS: COLACE PO SCH ×2 (09:09→20:48)
[2023-04-29] MEDS: DIOVAN PO SCH (09:09)
[2023-04-29] MEDS: ASPIRIN EC PO SCH (09:09)
[2023-04-29] MEDS: VITAMIN D PO SCH (09:10)
[2023-04-29] MEDS: SODIUM CHLORIDE 1,000 ML IV SCH ×2 (10:03→19:50)
--- NOTE | 2023-04-29 10:07 | PCM.PROG ---
Date/Time Seen Date Seen by Provider: 04/29/23 Time Seen by Provider: 08:45 Provider [facility] ROHAN DARDEN, [facility] Chief Complaint Chief Complaint: HYPERKALEMIA Subjective Subjective: Required dose of Compazine yesterday evening due to intractable nausea. Patient reports tolerated clear liquids after that and this am. Eating ADA diet at this time. States headache is gone and is feeling much better today. Objective Appearance: Positive No Apparent Distress, Alert and Oriented x3 and Obese Chest/Lungs: Positive Symmetrical With Equal Breath Sounds, Clear to Auscultation Bilaterally and Good Air Movement all 4 Lung Reed Heart: Positive RRR and Pulses Normal GI/: Positive Soft, Nontender, Bowel Sounds Normal and No Distention Musculoskeletal: Positive Not Examined Neurological: Positive Sensation Intact, Motor intact, Reflexes Intact, Alert, Oriented and Muscle Strength 5/5 in Upper and Lower Extremities Bilaterally Additional Findings: + 2 pitting edema BLE Vital Signs Vital Signs: Vital Signs: Last 24 Hours 04/28/23 11:25 04/28/23 11:25 04/28/23 12:00 Temperature 97.4 F L Temperature Source Oral Pulse Rate 112 H Pulse Rate [Apical] 110 H Respiratory Rate 16 Blood Pressure Blood Pressure Mean Blood Pressure Left Arm 147/100 Blood Pressure Location Blood Pressure Position Sitting O2 Sat by Pulse Oximetry 98 Oxygen Delivery Method Room Air Height 5 ft 3 in Weight 285 lb Telemetry Type Remote Telemetry Telemetry Monitoring Started Telemetry Heart Rate 110 H EKG [place] Interval 0.18 EKG QRS Interval 0.08 Telemetry Strip Reading Sinus Tachycardia 04/28/23 13:00 04/28/23 13:00 04/28/23 13:24 Temperature Temperature Source Pulse Rate 118 H Pulse Rate [Apical] Respiratory Rate 20 Blood Pressure 132/84 Blood Pressure Mean 100 Blood Pressure Left Arm Blood Pressure Location Left Arm Blood Pressure Position Sitting O2 Sat by Pulse Oximetry Oxygen Delivery Method Room Air Room Air Height Weight Telemetry Type Remote Telemetry Telemetry Monitoring Continues Telemetry Heart Rate 119 H EKG [place] Interval 0.09 L EKG QRS Interval 0.04 L Telemetry Strip Reading ST 04/28/23 13:54 04/28/23 14:00 04/28/23 14:40 Temperature 98.3 F Temperature Source Temporal Artery Scan Pulse Rate 117 H Pulse Rate [Apical] Respiratory Rate 24 H Blood Pressure 135/91 H Blood Pressure Mean 105 Blood Pressure Left Arm Blood Pressure Location Left Arm Blood Pressure Position O2 Sat by Pulse Oximetry 98 Oxygen Delivery Method Room Air Room Air Room Air Height Weight Telemetry Type Telemetry Monitoring Telemetry Heart Rate EKG AZ Interval EKG QRS Interval Telemetry Strip Reading 04/28/23 16:00 04/28/23 16:45 04/28/23 17:54 Temperature Temperature Source Pulse Rate Pulse Rate [Apical] Respiratory Rate Blood Pressure Blood Pressure Mean Blood Pressure Left Arm Blood Pressure Location Blood Pressure Position O2 Sat by Pulse Oximetry Oxygen Delivery Method Room Air Room Air Room Air Height Weight Telemetry Type Telemetry Monitoring Telemetry Heart Rate EKG AZ Interval EKG QRS Interval Telemetry Strip Reading 04/28/23 18:00 04/28/23 19:00 04/28/23 19:00 Temperature 97.5 F L Temperature Source Temporal Artery Scan Pulse Rate 111 H Pulse Rate [Apical] Respiratory Rate 24 H Blood Pressure 111/73 Blood Pressure Mean 85 Blood Pressure Left Arm Blood Pressure Location Left Arm Blood Pressure Position O2 Sat by Pulse Oximetry 97 Oxygen Delivery Method Room Air Room Air Height Weight Telemetry Type Remote Telemetry Telemetry Monitoring Continues Telemetry Heart Rate 103 H EKG [place] Interval 0.13 EKG QRS Interval 0.[address] 04/28/23 20:00 04/28/23 20:00 04/28/23 21:00 Temperature Temperature Source Pulse Rate Pulse Rate [Apical] 106 H Respiratory Rate Blood Pressure Blood Pressure Mean Blood Pressure Left Arm Blood Pressure Location Blood Pressure Position O2 Sat by Pulse Oximetry Oxygen Delivery Method Room Air Room Air Height Weight Telemetry Type Telemetry Monitoring Telemetry Heart Rate EKG AZ Interval EKG QRS Interval Telemetry Strip Reading 04/28/23 21:13 04/28/23 22:00 04/28/23 23:00 Temperature 97.8 F Temperature Source Oral Pulse Rate 104 H Pulse Rate [Apical] Respiratory Rate 20 Blood Pressure 99/76 Blood Pressure Mean 83 Blood Pressure Left Arm Blood Pressure Location Left Arm Blood Pressure Position Sitting O2 Sat by Pulse Oximetry 97 Oxygen Delivery Method Room Air Room Air Room Air Height Weight Telemetry Type Telemetry Monitoring Telemetry Heart Rate EKG AZ Interval EKG QRS Interval Telemetry Strip Reading 04/29/23 00:00 04/29/23 01:00 04/29/23 01:00 Temperature Temperature Source Pulse Rate Pulse Rate [Apical] Respiratory Rate Blood Pressure Blood Pressure Mean Blood Pressure Left Arm Blood Pressure Location Blood Pressure Position O2 Sat by Pulse Oximetry Oxygen Delivery Method Room Air Room Air Height Weight Telemetry Type Remote Telemetry Telemetry Monitoring Continues Telemetry Heart Rate 83 EKG AZ Interval 0.16 EKG QRS Interval 0.06 Telemetry Strip Reading SR 04/29/23 02:00 04/29/23 02:00 04/29/23 02:07 Temperature 97.7 F Temperature Source Oral Pulse Rate 82 Pulse Rate [Apical] Respiratory Rate 16 Blood Pressure 85/65 L 105/77 Blood Pressure Mean 71 86 Blood Pressure Left Arm Blood Pressure Location Left Arm Left Radial Artery Blood Pressure Position Sitting Sitting O2 Sat by Pulse Oximetry 96 Oxygen Delivery Method Room Air Room Air Room Air Height Weight Telemetry Type Telemetry Monitoring Telemetry Heart Rate EKG AZ Interval EKG QRS Interval Telemetry Strip Reading 04/29/23 03:00 04/29/23 04:00 04/29/23 05:00 Temperature Temperature Source Pulse Rate Pulse Rate [Apical] Respiratory Rate Blood Pressure Blood Pressure Mean Blood Pressure Left Arm Blood Pressure Location Blood Pressure Position O2 Sat by Pulse Oximetry Oxygen Delivery Method Room Air Room Air Room Air Height Weight Telemetry Type Telemetry Monitoring Telemetry Heart Rate EKG AZ Interval EKG QRS Interval Telemetry Strip Reading 04/29/23 05:11 04/29/23 06:00 04/29/23 07:00 Temperature 97.5 F L Temperature Source Oral Pulse Rate 88 Pulse Rate [Apical] Respiratory Rate 16 Blood Pressure 95/67 Blood Pressure Mean 76 Blood Pressure Left Arm Blood Pressure Location Left Arm Blood Pressure Position Sitting O2 Sat by Pulse Oximetry 95 Oxygen Delivery Method Room Air Room Air Room Air Height Weight Telemetry Type Telemetry Monitoring Telemetry Heart Rate EKG AZ Interval EKG QRS Interval Telemetry Strip Reading 04/29/23 07:00 04/29/23 08:00 04/29/23 09:00 Temperature Temperature Source Pulse Rate Pulse Rate [Apical] Respiratory Rate Blood Pressure Blood Pressure Mean Blood Pressure Left Arm Blood Pressure Location Blood Pressure Position O2 Sat by Pulse Oximetry Oxygen Delivery Method Room Air Room Air Height Weight Telemetry Type Telemetry Monitoring Telemetry Heart Rate 90 EKG AZ Interval 0.14 EKG QRS Interval 0.08 Telemetry Strip Reading NSR Lab Results Lab Results: Lab Results: Last 24 Hours 04/29/23 05:49 WBC 9.03 RBC 4.80 Hgb 14.0 Hct 44.9 MCV 93.5 MCH 29.2 MCHC 31.2 L RDW Coeff of Connie 14.8 Plt Count 231 Immature Gran % (Auto) 0.4 Neut % (Auto) 70.2 Lymph % (Auto) 18.6 [place] % (Auto) 8.6 Eos % (Auto) 1.8 Baso % (Auto) 0.4 Neut # (Auto) 6.3 Lymph # (Auto) 1.7 [place] # (Auto) 0.8 Eos # (Auto) 0.2 Baso # (Auto) 0.0 Immature Gran # (Auto) 0.0 Sodium 136.7 Potassium 5.15 H Chloride 107.2 H Carbon Dioxide 22.3 D Anion Gap 12.35 BUN 24.3 H Creatinine 1.70 H Estimated GFR (MDRD) 31.00 BUN/Creatinine Ratio 14.29 Glucose 122.3 H D Calcium 8.95 Total Bilirubin 0.59 AST 23.8 ALT 17.6 Alkaline Phosphatase 111.4 D Total Protein 7.15 Albumin 3.73 Globulin 3.42 Albumin/Globulin Ratio 1.09 Additional Comments Additional Comments: I have independently reviewed and interpreted the labs/EKGs/imaging ordered during this hospital stay. I have reviewed outside records that are available in our EMR that pertain to medical stay including imaging/notes/labs from previous visits. Active Medications Active Medications: Medications Generic Name Dose Route Start Last Admin Trade Name Freq PRN Reason Stop Dose Admin Hydrocodone Bitart/Acetaminophen 1 tab 04/28/23 13:20 04/28/23 14:57 Hydrocodone Bit/Acetaminophen 7.5/325 Mg Tablet PO 1 tab Q6HR PRN Administration Pain Amitriptyline HCl 50 mg 04/28/23 21:00 04/28/23 21:08 Amitriptyline Hcl 25 Mg Tablet PO 50 mg BEDTIME DREW Administration Aspirin 325 mg 04/29/23 09:00 04/29/23 09:09 Aspirin 325 Mg Tablet. PO 325 mg DAILYWM2 DREW Administration Atorvastatin Calcium 40 mg 04/28/23 17:00 04/28/23 16:10 Atorvastatin Calcium 20 Mg Tablet PO 40 mg QPM DREW Administration Carvedilol 12.5 mg 04/28/23 17:00 04/29/23 09:09 Carvedilol 12.5 Mg Tablet PO 12.5 mg BIDWM2 DREW Administration Cholecalciferol 1,000 unit 04/29/23 09:00 04/29/23 09:10 Cholecalciferol (Vitamin D3) 1,000 Unit (25 Mcg) Tablet PO 1,000 unit DAILY DREW Administration Docusate Sodium 100 mg 04/28/23 21:00 04/29/23 09:09 Docusate Sodium 100 Mg Capsule PO 100 mg BID DREW Administration Hydralazine HCl 25 mg 04/28/23 13:20 Hydralazine Hcl 50 Mg Tablet PO QID PRN Hypertension Sodium Chloride 1,000 mls @ 100 mls/hr 04/29/23 10:00 04/29/23 10:03 Sodium Chloride IV 100 mls/hr .Q10H DREW Administration Insulin Human Regular 0 unit 04/28/23 10:49 04/28/23 12:07 Insulin Regular, Human 100 Unit/Ml (10ml) Vial SUBCUT 3 unit PRN PRN Administration Hyperglycemia Protocol Levothyroxine Sodium 100 mcg 04/29/23 06:00 04/29/23 05:30 Levothyroxine Sodium 100 Mcg Tablet PO 100 mcg QDAC2 DREW Administration Levothyroxine Sodium 75 mcg 04/29/23 06:00 04/29/23 05:30 Levothyroxine Sodium 75 Mcg Tablet PO 75 mcg QDAC2 DREW Administration Metoclopramide HCl 5 mg 04/28/23 10:45 04/28/23 13:30 Metoclopramide Hcl 10 Mg/2 Ml IVP 5 mg Q6H PRN Administration Nausea / Vomiting Nifedipine 60 mg 04/29/23 09:00 04/29/23 09:12 Nifedipine 30 Mg Tab.Er.24 PO 60 mg DAILY DREW Administration Ondansetron HCl 4 mg 04/28/23 10:45 04/28/23 17:22 Ondansetron Hcl/Pf 4 Mg/2 Ml Sdv IVP 4 mg Q6H PRN Administration Nausea / Vomiting Pantoprazole Sodium 40 mg 04/28/23 17:00 04/29/23 05:29 Pantoprazole Sodium 40 Mg Vial IVP 40 mg BIDAC2 DREW Administration Tizanidine HCl 8 mg 04/28/23 21:00 04/28/23 21:08 Tizanidine Hcl 4 Mg Tablet PO 8 mg BEDTIME DREW Administration Tizanidine HCl 4 mg 04/29/23 09:00 04/29/23 09:09 Tizanidine Hcl 4 Mg Tablet PO 4 mg 0900,1500 [facility] Administration Valsartan 320 mg 04/29/23 09:00 04/29/23 09:09 Valsartan 160 Mg Tablet PO 320 mg DAILY DREW Administration Plan Plan: 1. SOPHIE secondary to vomiting - Worsening labs today, fluids d/c in computer in error, continue NS@100mL/hr, avoid nephrotoxins/hypotension 2. Hyperkalemia - Improving, down to 5.1 this am, continue fluids, telemetry 3. Intractable N/V - Resolved, protonix 40 mg BID, zofran 4 mg Q6H prn, reglan 5 mg Q6H prn, 4. Hypertensive Urgency secondary to inability to take medications due to vomiting - Resolved 5. DM type 2 - accuchecks qid with ssi, hold oral agents, ADA diet when diet able to be advanced, trulicity dose recently increased to max dose - adjust on discharge 6. Hyperlipidemia - chronic, continue home medications 7. Hypertension - chronic, continue home medications DVT Prophylaxis: Up ad jennifer Review Statement Review Statement: I have personally discussed and reviewed the patient's visit/currently labs/imaging/decision making with Dr. Green, my supervising attending. Greater that 50 minutes spent with patient, 50% of the time spent with this patient was devoted to counseling and coordination of care.
[2023-04-29] MEDS: HUMULIN R SUBCUT PRN ×2 (11:41→17:06)
[2023-04-29] MEDS: LIPITOR PO SCH (16:51)
[2023-04-29] MEDS: ELAVIL PO SCH (20:47)
[2023-04-30] MEDS: PROTONIX IVP SCH (05:28)
[2023-04-30] MEDS: SODIUM CHLORIDE 1,000 ML IV SCH (05:29)
[2023-04-30] MEDS: SYNTHROID PO SCH ×2 (05:29)
[2023-04-30 06:26] LABS: BASOPHILS % (AUTO) 0.4 % (0.0-3.0); EOSINOPHILS # (AUTO) 0.3 K/ul (0.0-0.7); EOSINOPHILS % (AUTO) 3.9 % (0.0-7.0); HEMOGLOBIN 12.8 g/dl (12.0-16.0); IMMATURE GRANULOCYTE # (AUTO) 0.1 (0.0-1.0); IMMATURE GRANULOCYTE % (AUTO) 0.8 % (0.0-5.0); LYMPHOCYTES # (AUTO) 1.2 K/uL (0.60-3.4); LYMPHOCYTES % (AUTO) 17.4 (10.0-50.0); MEAN CORPUSCULAR HEMOGLOBIN 29.6 pg (27.0-31.0); MEAN CORPUSCULAR HGB CONC 31.2 (31.8-35.4); MEAN CORPUSCULAR VOLUME 94.7 fl (81.0-99.0); MONOCYTES # (AUTO) 0.6 K/uL (0.4-2.0); NEUTROPHILS # (AUTO) 4.9 K/ul (2.0-6.9); NEUTROPHILS % (AUTO) 68.5 % (42.2-75.2); PLATELET COUNT 179 10^3/uL (140-440); RDW COEFFICIENT OF VARIATION 14.8 % (11.6-14.8); RED BLOOD COUNT 4.33 10^6/ul (4.20-5.40); WHITE BLOOD COUNT 7.12 K/ul (4.6-10.2)
[2023-04-30 06:41] LABS: ALANINE AMINOTRANSFERASE 16.6 U/L (0-35); ALBUMIN 3.63 g/dL (3.5-5.0); ALKALINE PHOSPHATASE 99.7 U/L (53-141); ASPARTATE AMINO TRANSFERASE 21.8 U/L (14-36); BILIRUBIN,TOTAL 0.34 mg/dL (0.2-1.3); BLOOD UREA NITROGEN 32.4 mg/dL (7-17); CALCIUM 8.22 mg/dL (8.4-10.2); CHLORIDE 109.2 mmol/L (98-107); CREATININE 1.75 mg/dL (0.60-1.30); GLUCOSE 99.1 mg/dL (74-106); POTASSIUM 4.72 mmol/L (3.5-5.1); SODIUM 137.2 mmol/L (134.5-145); TOTAL PROTEIN 6.89 g/dL (6.3-8.2)
[2023-04-30] MEDS: ASPIRIN EC PO SCH (08:36)
[2023-04-30] MEDS: COREG PO SCH (08:37)
[2023-04-30] MEDS: VITAMIN D PO SCH (08:37)
[2023-04-30] MEDS: COLACE PO SCH (08:38)
[2023-04-30] MEDS: ZANAFLEX PO SCH (08:41)
[2023-04-30] MEDS ORDERED: LASIX IVP SCH (08:45)
[2023-04-30] MEDS: DIOVAN PO SCH (09:00)
--- NOTE | 2023-04-30 09:54 | DCSUM ---
Admission Date Admission Date: 04/28/23 Discharge Date Discharge Date: 04/30/23 Admission Diagnosis Admission Diagnosis: 1. SOPHIE secondary to vomiting 2. Hyperkalemia 3. Intractable N/V 4. Hypertensive Urgency 5. DM type 2 6. Hyperlipidemia Discharge Diagnosis Discharge Diagnosis: 1. SOPHIE secondary to vomiting - Stable, concern for CKD 2. Hyperkalemia - Resolved 3. Intractable N/V - Resolved, protonix 40 mg BID, zofran 4 mg Q6H prn, reglan 5 mg Q6H prn, 4. Hypertensive Urgency secondary to inability to take medications due to vomiting - Resolved 5. DM type 2 - Chronic, stable 6. Hyperlipidemia - Chronic, stable 7. Hypertension - Chronic, stable Hospital Provider Hospital Provider: ROHAN DARDEN, [facility] Primary Care Physician Primary Care Physician: LUTHER MARI Summary of History and Physical Summary of History and Physical: 58 yo female presented to the ER with persistent vomiting. Patient states that she has been vomiting since yesterday. Had a recent change in her Trulicity dose almost 2 weeks ago. This issue happened when she was on ozempic and had a dose adjustment. Denies any fever, chills, SOB, chest pain, diarrhea, or urinary symptoms. Does report headache due to high BP. Has been unable to take any of her medications since the vomiting started. Has vomited 1-2 times today. Denies any blood present. Hospital Course Subjective: On admission, patient was started on NS@100mL/hr for treatment of SOPHIE and hyperkalemia. Hyperkalemia resolved. SOPHIE persisted despite fluid resuscitation. Planned to diurese with lasix due to concern of cardiorenal cause r/t uncontrolled HTN. Discussed with patient concern for CKD based on risk factors of DM and uncontrolled HTN. States she has been told she has mild CKD. On admission at [facility] almost a month ago renal labs high but returned to baseline. Discussed concern with patient and patient requesting to go home. Discussed importance of following up with PCP this week and monitoring of labs. Nausea and vomiting resolved after serial doses of zofran, reglan, and 1 dose of compazine. Has been tolerating oral intake well. Discussed to hold trulicity until resumed by PCP and patient reports she is not to take it for another 2 weeks. All other home medications continued as prescribed, no changes made. Appearance: Pleasant, No Apparent Distress and Alert HEENT: MMM and Supple CVS: No Murmur and No Rubs Abdomen: Soft, Non-Tender and No Distention Respiratory: No Dyspnea Extremities: Other (+1-2 pitting edema) Vital Signs: Most Recent Vital Signs Temperature 97.7 F 04/30/23 05:50 Temperature Source Temporal Artery Scan 04/30/23 05:50 Temperature Source Oral 04/28/23 06:39 Pulse Rate 90 04/30/23 08:00 Respiratory Rate 19 04/30/23 05:50 Blood Pressure 120/72 04/30/23 08:35 Blood Pressure Mean 88 04/30/23 08:35 Blood Pressure Left Arm 147/100 04/28/23 11:25 Blood Pressure Location Left Arm 04/30/23 05:50 Blood Pressure Position Supine 04/30/23 05:50 O2 Sat by Pulse Oximetry 98 04/30/23 05:50 Oxygen Delivery Method Room Air 04/30/23 09:00 Height 5 ft 3 in 04/28/23 11:25 Weight 285 lb 04/28/23 11:25 Telemetry Type Remote Telemetry 04/30/23 07:00 Telemetry Monitoring Continues 04/30/23 07:00 Telemetry Heart Rate 67 04/30/23 07:00 Telemetry SPO2 97 10/05/14 18:27 EKG [place] Interval 0.18 04/30/23 07:00 EKG QRS Interval 0.04 L 04/30/23 07:00 Telemetry Strip Reading SR 04/30/23 07:00 Lab Results Last 24 Hours: 04/30/23 06:18 WBC 7.12 RBC 4.33 Hgb 12.8 Hct 41.0 MCV 94.7 MCH 29.6 MCHC 31.2 L RDW Coeff of Connie 14.8 Plt Count 179 Immature Gran % (Auto) 0.8 Neut % (Auto) 68.5 Lymph % (Auto) 17.4 [place] % (Auto) 9.0 Eos % (Auto) 3.9 Baso % (Auto) 0.4 Neut # (Auto) 4.9 Lymph # (Auto) 1.2 [place] # (Auto) 0.6 Eos # (Auto) 0.3 Baso # (Auto) 0.0 Immature Gran # (Auto) 0.1 Sodium 137.2 Potassium 4.72 Chloride 109.2 H Carbon Dioxide 21.0 L Anion Gap 11.72 BUN 32.4 H Creatinine 1.75 H Estimated GFR (MDRD) 30.00 BUN/Creatinine Ratio 18.51 Glucose 99.1 Calcium 8.22 L Total Bilirubin 0.34 AST 21.8 ALT 16.6 Alkaline Phosphatase 99.7 Total Protein 6.89 Albumin 3.63 Globulin 3.26 Albumin/Globulin Ratio 1.11 Discharge Instructions Discharge Planning: Discharge Planning > 40 minutes If patient is discharged with left ventricular systolic dysfunction: NA Discharged with a beta kayden? [] If no, why not? [] Discharged with an nilay/arb? [] If no, why not? [] Diabetic Diet Activity as tolerated Continue home medications as prescribed. Follow-up with PCP this week for repeat labs to check kidney function. Discharge Medications: Medications at Discharge (Home Meds & RX) levothyroxine 100 mcg tablet (Synthroid) 175 mcg PO QDAC 06/28/15 metformin 500 mg tablet 500 mg PO BIDWM 06/28/15 metoprolol succinate 50 mg tablet,extended release 24 hr 100 mg PO BID 06/28/15 diphenhydramine HCl 25 mg capsule (Benadryl) 50 mg PO TID 01/08/21 hydrocodone 7.5 mg-acetaminophen 325 mg tablet 1 tab PO Q6HR PRN Pain 01/08/21 nifedipine 60 mg tablet,extended release 60 mg PO DAILY 01/08/21 docusate sodium 100 mg tablet (Stool Softener) 100 mg PO BID 04/12/21 glimepiride 1 mg tablet 2 mg PO DAILY 04/12/21 amitriptyline 50 mg tablet 50 mg PO BEDTIME 07/14/22 furosemide 40 mg tablet 40 mg PO DAILY 07/14/22 pravastatin 20 mg tablet 40 mg PO DAILY 07/14/22 tizanidine 4 mg capsule 4 mg PO BID 07/14/22 tizanidine 4 mg capsule 8 mg PO BEDTIME 07/14/22 cholecalciferol (vitamin D3) 125 mcg (5,000 unit) tablet (Vitamin D3) 125 mcg PO DAILY 08/08/22 losartan 100 mg tablet 100 mg PO DAILY 08/08/22 ondansetron 8 mg disintegrating tablet 8 mg PO Q8H PRN nausea and vomiting #14 tabs 08/08/22 aspirin 325 mg tablet 325 mg PO DAILY 04/28/23 atorvastatin 40 mg tablet 40 mg PO QPM 04/28/23 carvedilol 12.5 mg tablet 12.5 mg PO BID 04/28/23 hydralazine 25 mg tablet 25 mg PO QID PRN BP over 170 04/28/23 ketorolac 10 mg tablet 10 mg PO Q4-6H PRN headache 04/28/23 spironolactone 25 mg tablet 25 mg PO DAILY 04/28/23 valsartan 320 mg tablet 320 mg PO DAILY 04/28/23 Discharge Plan Discharge Discharge Orders: Discharge Patient (ONCE); Ordered 04/30/23 Ordered By: AMINAH AYUOB Activity Restrictions/Additional Instructions: Diabetic Diet Activity as tolerated Continue home medications as prescribed. Follow-up with PCP this week for repeat labs to check kidney function. Instructions: Acute Kidney Injury (GEN), Chronic Kidney Disease Diet (GEN), Hypertension (GEN) Patient Disposition: HOME SELF-CARE Prescriptions: Continued metformin 500 MG tablet 500 mg PO BIDWM metoprolol succinate 50 MG tablet extended release 24 hr 100 mg PO BID levothyroxine [Synthroid] 100 MCG tablet 175 mcg PO QDAC hydrocodone-acetaminophen 7.5-325 mg Tablet 1 tab PO Q6HR PRN (Reason: Pain) diphenhydramine HCl [Benadryl] 25 mg Capsule 50 mg PO TID nifedipine 60 mg Tablet Extended Release 60 mg PO DAILY glimepiride 1 mg Tablet 2 mg PO DAILY docusate sodium [Stool Softener] 100 mg Tablet 100 mg PO BID pravastatin 20 mg tablet 40 mg PO DAILY furosemide 40 mg Tablet 40 mg PO DAILY tizanidine 4 mg Capsule 4 mg PO BID tizanidine 4 mg Capsule 8 mg PO BEDTIME amitriptyline 50 mg Tablet 50 mg PO BEDTIME cholecalciferol (vitamin D3) [Vitamin D3] 125 mcg (5,000 unit) Tablet 125 mcg PO DAILY losartan 100 mg tablet 100 mg PO DAILY ondansetron 8 mg tablet,disintegrating 8 mg PO Q8H PRN (Reason: nausea and vomiting) Qty: 14 0RF atorvastatin 40 mg tablet 40 mg PO QPM carvedilol 12.5 mg tablet 12.5 mg PO BID spironolactone 25 mg tablet 25 mg PO DAILY valsartan 320 mg tablet 320 mg PO DAILY ketorolac 10 mg tablet 10 mg PO Q4-6H PRN (Reason: headache) Rx Instructions: do not exceed 4 doses per 24 hrs hydralazine 25 mg tablet 25 mg PO QID PRN (Reason: BP over 170) aspirin 325 mg tablet 325 mg PO DAILY Did you review [place] [employer] for ALL controlled substances?: No Discussed opioids are addictive and Narcan is available by prescription or from pharmacy.: No Condition: Stable
[2023-04-30 10:11] VITALS: BP 148/100; PULSE 88; RESP 18; TEMP 96.8
[2023-04-30] MEDS ORDERED: HEPARIN 500 UNIT/5 ML (PORT ACCESS TRAY ONLY) IVF ONE (10:44)
[2023-04-30] MEDS ORDERED: PROCARDIA XL PO SCH (12:00)
== END 2023-04-30 11:30 | disposition home or self-care (01) ==
LOC: MEDSURG B 06:35 → ED 06:35 → MEDSURG B 11:18
PROVIDERS: ADMIT Hospitalist; ATTEND Nurse Practitioner Family
DX: N17.9 Acute kidney failure, unspecified; E11.9 Type 2 diabetes mellitus without complications; Z79.4 Long term (current) use of insulin; I16.0 Hypertensive urgency; K80.20 Calculus of gallbladder without cholecystitis without obstruction; E78.5 Hyperlipidemia, unspecified; Z51.81 Encounter for therapeutic drug level monitoring; R10.11 Right upper quadrant pain; E87.5 Hyperkalemia; Z79.899 Other long term (current) drug therapy; Z20.822 Contact with and (suspected) exposure to COVID-19; I10 Essential (primary) hypertension; R11.2 Nausea with vomiting, unspecified